=== PATIENT | male | born 1940 | race Caucasian/White ===

== ENCOUNTER → 2017-10-11 12:05 | Outpatient (CLI) | payer MEDICARE, SELFPAY ==
--- NOTE | 2017-10-11 12:13 | XR_ITS ---
XR chest 2V HISTORY: ITS.REASON: PNEUMONIA ORDERING PHYSICIAN: Debbie Bingham PATIENT AGE: 77 years COMPARISON: 12/03/2016 FINDINGS: There is borderline cardiomegaly without failure. Increased density in the left lower lobe and could be due to chronic changes or pneumonia.. Increased density is present in the right upper and right lower lobe consistent with pneumonia. There is thickening of the right minor fissure. No acute bony anomalies. There is a bone plate over the lower cervical spine. IMPRESSION: 1. Right upper and right lower lobe pneumonia. 2. Left lower lobe pneumonia versus chronic change.
== END ==
PROVIDERS: PCP Nurse Practitioner Family; Visit Provider Nurse Practitioner Family
DX: J18.1 Lobar pneumonia, unspecified organism (principal)
CPT/HCPCS: 71046

== ENCOUNTER → 2018-01-10 07:35 | Outpatient (CLI) | payer MEDICARE, SELFPAY ==
--- NOTE | 2018-01-10 07:41 | CA_ITS ---
PROCEDURE: 2-D M-mode and color Doppler study INDICATIONS FOR THE TEST: Chest pain X COPD Heart Murmur Tobacco Smoking Palpitations Fatigue Syncope EdemaX HypertensionXDiabetes MellitusX Rheumatic Fever SOB COBB ObesityXHyperlipidemiaX Family History HD Additional History CAD,LEUKEMIA PATIENT INFORMATION HEIGHT: 68 WEIGHT:222 GENDER: Male B/P:157/50 2-D/M-MODE INTERPRETATION: 2-D MEASUREMENTS OBSERVED VALUES IN CMS Right Ventricular Dimension (RVDd) 2.0 Interventricular Septum (Thickness)(IVsd) 1.3 Left Ventricular Internal Dimensions(LVIDd) 5.1 Left Ventricular Posterior Wall (Thickness)(LVPWd) 1.2 Aortic Root 3.9 Aortic Cusp Separation 1.3 Left Atrial Dimensions (LAD) 3.9 2D 1. Left atrium is mildly enlarged, left ventricle is normal size, mild concentric left ventricular hypertrophy, visually estimated ejection fraction 55% with no obvious regional wall motion abnormality. 2. The right atrium and right ventricle are mildly enlarged with normal contractility. 3. The aortic valve is thickened and calcified with mild restriction the leaflet mobility. 4. The mitral and tricuspid valve leaflets are minimally thickened. 5. The pulmonic valve is poorly visualized. 6. No significant pericardial effusion noted. DOPPLER INTERROGATION: 1. The maximum aortic out flow velocity recorded study 2.4 m/s, resulting in a mean gradient across valve of 14 mmHg represents mild aortic stenosis. There is no aortic insufficiency. 2. The mitral inflow velocity within normal range, there is no mitral stenosis, there is mild mitral regurgitation, grade 1 diastolic dysfunction seen with tissue Doppler evidence of raised left atrial pressure. 3. Mild tricuspid regurgitation, calculated right ventricular systolic pressure is 64 mmHg consistent with moderate pulmonary hypertension. CONCLUSION: 1. Mildly enlarged left atrium, normal left ventricular size, mild concentric left ventricular hypertrophy, visually estimated ejection fraction 55% with no obvious regional wall motion abnormality, grade 1 diastolic dysfunction seen with tissue Doppler evidence of raised left atrial pressure. 2. Thickened and calcified aortic valve, mean gradient across valve of 14 mmHg represents mild aortic stenosis, there is no aortic insufficiency. 3. Mild tricuspid regurgitation, calculated ventricular systolic pressure is 64 mmHg consistent with moderate pulmonary hypertension. 4. No significant pericardial effusion noted.
== END ==
PROVIDERS: PCP Family Medicine; Visit Provider Internal Medicine
DX: I25.10 Atherosclerotic heart disease of native coronary artery without angina pectoris (principal); R07.9 Chest pain, unspecified; E11.9 Type 2 diabetes mellitus without complications; E78.2 Mixed hyperlipidemia; I10 Essential (primary) hypertension; C91.00 Acute lymphoblastic leukemia not having achieved remission; R60.9 Edema, unspecified; Z95.5 Presence of coronary angioplasty implant and graft
CPT/HCPCS: 93306

== ENCOUNTER → 2018-01-13 14:33 | Outpatient (CLI) | payer MEDICARE, SELFPAY | PROVIDERS: Visit Provider Internal Medicine Medical Oncology | DX: D50.9 Iron deficiency anemia, unspecified (principal) | CPT/HCPCS: 36415; 86850 ==

== ENCOUNTER → 2018-01-14 08:50 | Outpatient (CLI) | payer MEDICARE, SELFPAY ==
[2018-01-14] VITALS (18 sets, daily range): BP systolic 150–198; BP diastolic 61–85; PULSE 58–69; RESP 16–18; TEMP 36.1–36.2; O2SAT 96; BMI 33.4
[2018-01-14 09:51] LABS: Hematocrit 24.2 % (42.0-52.0); Hemoglobin 8.2 g/dL (14.1-18.0)
--- NOTE | 2018-01-14 10:35 | PC.NURSE ---
1030 - INFUSION RATE AT 100 ML/HR AT THIS TIME
--- NOTE | 2018-01-14 11:53 | PC.NURSE ---
RATE WAS INCREASED TO 150 ML/HR AT 1100
--- NOTE | 2018-01-14 11:55 | PC.NURSE ---
1130 - INCREASED RATE TO 200 ML/HR AT THIS TIME
--- NOTE | 2018-01-14 12:36 | PC.NURSE ---
RATE WAS INCREASED TO 250 ML/HR AT 1200
--- NOTE | 2018-01-14 13:02 | PC.NURSE ---
1255 - BLOOD STARTED INFUSING AT 100 ML/HR AT THIS TIME
--- NOTE | 2018-01-14 13:47 | PC.NURSE ---
1325 - INCREASED RATE TO 150 ML/HR AT THIS TIME
--- NOTE | 2018-01-14 15:25 | PC.NURSE ---
1355 - INCREASED RATE TO 200 ML/HR AT THIS TIME.
--- NOTE | 2018-01-14 15:26 | PC.NURSE ---
INCREASED RATE TO 250 ML/HR AT 1425
== END ==
PROVIDERS: PCP Family Medicine; Visit Provider Internal Medicine Medical Oncology
DX: D50.9 Iron deficiency anemia, unspecified (principal)
CPT/HCPCS: 36430; 85014; 85018; P9016

== ENCOUNTER → 2018-01-25 13:44 | Outpatient (POV) | payer MEDICARE, SELFPAY | PROVIDERS: Visit Provider Internal Medicine | DX: Z00.00 Encounter for general adult medical examination without abnormal findings (principal) ==

== ENCOUNTER → 2018-05-17 18:09 | Outpatient (CLI) | payer MEDICARE, SELFPAY ==
[2018-05-20 07:03] LABS: C difficile Toxins AB, EIA Negative (Negative)
== END ==
PROVIDERS: PCP Family Medicine; Visit Provider Nurse Practitioner Family
DX: R19.7 Diarrhea, unspecified (principal)
CPT/HCPCS: 87045; 87324

== ENCOUNTER → 2018-09-16 07:43 | Outpatient (CLI) | payer MEDICARE, SELFPAY ==
--- NOTE | 2018-09-16 07:46 | US_ITS ---
US abd. aorta screening HISTORY: Follow-up abdominal aortic aneurysm or ITS.REASON: AAA ORDERING PHYSICIAN: Cary Costa PATIENT AGE: 78 years Comparison: 01/06/2017 FINDINGS: Study is somewhat limited due to patient's body habitus and overlying bowel gas. There is dilatation of the midabdominal aorta at 4 cm previously measured at 3 cm. Proximal common iliacs are unremarkable. IMPRESSION: Limited study demonstrating 4 cm abdominal aortic aneurysm which is increased in size from the previous exam. Suggest CT for confirmation due to the above limitations
== END ==
PROVIDERS: PCP Family Medicine; Visit Provider Urology
DX: I71.4 Abdominal aortic aneurysm, without rupture (principal)
CPT/HCPCS: 76705

== ENCOUNTER → 2018-09-27 08:47 | Outpatient (CLI) | payer MEDICARE, SELFPAY ==
--- NOTE | 2018-09-27 08:59 | CT_ITS ---
CT angio abdomen CLINICAL INDICATION: Abdominal aortic aneurysm evaluation, follow-up abdominal aortic aneurysm ITS.REASON: AAA ORDERING PHYSICIAN: Mesfin Presley MD PATIENT AGE: 78 years COMPARISON: 09/16/2018, 05/18/2012 TECHNIQUE: Axial images obtained with sagittal and coronal reformats. All CT scans at the facility use one or more dose reduction, viz: automated exposure control, ma/kV adjustment per patient size (including targeted exams where dose is matched to indication, i.e. head), or iterative reconstruction technique. PROCEDURE: Oral Contrast: None IV Contrast: 100 mL of Isovue-370. FINDINGS: Angiographic findings: Atheromatous changes are present within the abdominal aorta and its branches. There is mild fusiform dilatation of the upper abdominal aorta beginning 8 mm below the level the renal arteries measuring up to 3.3 cm transverse and 3.1 cm AP. The aorta then becomes somewhat more narrow at 2.6 cm AP and transverse and then once again shows fusiform aneurysmal dilatation measuring up to 3.6 cm AP and 3.4 cm transverse. On the exam of 05/18/2012 the abdominal aorta measures up to 3.3 cm AP and 3 cm transverse. There is mild mild intramural thrombus. Calcific plaque is present at the ostium of the celiac artery with at least 50% stenosis. No significant stenosis of the SMA however, plaque is present at the origin. Calcific plaque is now also noted at the origin of the renal arteries on both sides with high-grade stenosis on the right greater than 50%. The inferior mesenteric artery is patent. Calcific plaque is present also and involving the iliac arteries with mild dilatation of the common iliac on the right at 1.7 cm. Nonvascular findings: Gallbladder is slightly distended with minimal prominence of the extrahepatic biliary radicals. The liver, spleen, adrenal glands, and pancreas have an unremarkable appearance. THERE IS A LOBULATED PERIPHERALLY ENHANCING RIGHT RENAL MASS INVOLVING THE UPPER POLE THE RIGHT KIDNEY. This mass measures 3.9 cm AP, 3.6 cm transverse, and 3.6 cm cephalad caudad and is suspicious for neoplasm. This has developed since the previous exam and has also developed since the previous ultrasound of 11/11/2016. Decreased density is noted centrally within this lesion. Degenerative changes are present in the lumbar spine. There is 50% wedge compression changes involving the L4 vertebral body centrally and anteriorly. This has developed since 04/20/2017 lumbar spine film. IMPRESSION: 1. Atherosclerotic vascular disease of the aorta and its branches with a fusiform infrarenal abdominal aortic aneurysm measuring up to 3.6 x 3.4 cm slightly increased in size compared to the previous CT scan of 05/18/2012. 2. 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 3. There is a 3.9 x 3.6 cm enhancing mass along the superior pole the right kidney. This is highly suspicious for renal cell carcinoma.
[2018-09-27 09:15] LABS: Blood Urea Nitrogen 17 mg/dL (7-18); Creatinine,Serum 0.94 mg/dL (0.70-1.30); Estimated Glomerular Filt Rate 78 ml/min (>60); GFR (African American) 94 ML/MIN (>60)
== END ==
PROVIDERS: Urology; Visit Provider Internal Medicine
DX: I71.4 Abdominal aortic aneurysm, without rupture (principal)
CPT/HCPCS: 36415; 74175; 82565; 84520; Q9967

== ENCOUNTER → 2019-08-10 17:10 | Outpatient (CLI) | payer MEDICARE, SELFPAY | PROVIDERS: Visit Provider Nurse Practitioner Family | DX: R19.7 Diarrhea, unspecified (principal) | CPT/HCPCS: 87045 ==

== ENCOUNTER 2020-03-01 10:45 | Outpatient (RCR) | payer MEDICARE, SELFPAY | END 2020-03-01 12:00 | disposition home or self-care (01) | LOC: PT 10:45 | PROVIDERS: PCP Family Medicine; Visit Provider Family Medicine | DX: M54.5 Low back pain (principal); M62.81 Muscle weakness (generalized); C85.90 Non-Hodgkin lymphoma, unspecified, unspecified site; I35.1 Nonrheumatic aortic (valve) insufficiency; E11.65 Type 2 diabetes mellitus with hyperglycemia; D63.8 Anemia in other chronic diseases classified elsewhere | CPT/HCPCS: 97542 ==

== ENCOUNTER → 2020-04-13 10:46 | Outpatient (CLI) | payer MEDICARE, SELFPAY ==
--- NOTE | 2020-04-13 | XR_ITS ---
PROCEDURE: XR CERVICAL SPINE 5V CLINICAL INDICATION: Neck pain COMPARISON: No exams were available for comparison FINDINGS: There has been prior anterior cervical disc fusion at C3 and C4 with an anterior bone plate. An additional bone plate is present anteriorly with fusion at C4-C5 and C6 with disc spacers at C3-C4 C4-C5 and C5-C6. There is normal alignment. No acute fracture or dislocation. No lytic or blastic change. There is mild foraminal narrowing on the right at C2-C3. IMPRESSION: Postsurgical changes with good alignment. No acute finding. Mild right foraminal narrowing at C2-C3 Dictated b Venancio Mondragon MD 04/13/2020 12:51 Venancio Mondragon MD in [place] 04/13/2020 12:51
== END ==
PROVIDERS: PCP Nurse Practitioner Family; Visit Provider Nurse Practitioner Family
DX: M54.2 Cervicalgia (principal); R20.2 Paresthesia of skin; R20.0 Anesthesia of skin; Z98.1 Arthrodesis status
CPT/HCPCS: 72050

== ENCOUNTER 2020-05-04 19:49 | Observation (INO) | payer MEDICARE, SELFPAY ==
[2020-05-04] VITALS (8 sets, daily range): BP systolic 109–189; BP diastolic 57–85; PULSE 80–93; RESP 18–24; TEMP 37.2; O2SAT 82–97; BMI 30.4; BMI 31.3
--- NOTE | 2020-05-04 20:14 | ECG_ITS ---
APPROVED REPORT Exam: Resting ECG HR:95 bpm ECG Measurements Heart Rate 95 AXES DE 244 P 60 QRSd 102 QRS 73 QT 324 T 69 QTc 407 <Conclusion> Sinus rhythm with 1st degree AV block Incomplete right bundle branch block Borderline ECG Electronically signed by : Alverto Gonzalez, 05/05/2020 19:51:27
--- NOTE | 2020-05-04 20:14 | XR_ITS ---
PROCEDURE: XR CHEST PORTABLE CLINICAL HISTORY: SOA Shortness of air COMPARISON: CR CXR1 CHEST-PORTABLE from 12/02/2016 CR CXR CHEST(2 VIEWS-NOT PORTABLE) from 12/03/2016 CR CXR2V XR chest 2V from 10/11/2017 FINDINGS: The cardiomediastinal silhouette and pulmonary vascularity are within normal limits. There is dense consolidation in the right upper lobe consistent with pneumonia. Increased density also noted in the lower lobe consistent pneumonia or atelectatic change. Left clear. IMPRESSION: Right upper and right lower lobe pneumonia most severe in the right upper Dictated by: Venancio Mondragon MD 05/05/2020 06:45 Venancio Mondragon MD in [place] 05/05/2020 06:45
[2020-05-04 20:25] LABS: Basophils % 0.4 % (0.1-2.0); Eosinophils # 0.1 K/mm3 (0.0-0.4); Eosinophils % 0.6 % (0.1-12.0); Hematocrit 31.8 % (42.0-52.0); Hemoglobin 10.5 g/dL (14.1-18.0); Lymphocytes # 6.4 K/mm3 (0.7-4.5); Lymphocytes % 54.4 % (10-50); Mean Corpuscular HGB Conc 32.8 g/dL (31.8-35.4); Mean Corpuscular Hemoglobin 36.2 pg (27.0-31.2); Mean Corpuscular Volume 110.2 fl (80-94); Mean Platelet Volume 8.9 fl (7.4-10.4); Monocytes # 0.3 K/mm3 (0.1-1.0); Monocytes % 2.7 % (1.7-9.3); Neutrophils # 4.9 K/mm3 (1.8-7.8); Neutrophils % 41.9 % (37.0-80.0); Platelet Count 76 K/mm3 (142-424); Red Blood Count 2.89 M/mm3 (4.60-6.20); Red Cell Distribution Width 14.1 % (11.5-17.5); White Blood Count 11.7 K/mm3 (4.8-10.8)
[2020-05-04 20:27] LABS: MANUAL DIFFERENTIAL MANUAL DIFFERENTIAL (MANUAL DIFF)
[2020-05-04 20:30] LABS: Alanine Aminotransferase 14 U/L (12-78); Albumin Level 3.4 g/dl (3.5-5.0); Albumin/Globulin Ratio 1.6 (1.1-1.8); Alkaline Phosphatase 23 U/L (38-126); Anion Gap 17.9 mEq/L (5-15); Aspartate Amino Transferase 32 U/L (17-59); Bilirubin,Total 1.2 mg/dl (0.2-1.3); Blood Urea Nitrogen 29 mg/dl (9-20); Calcium 8.6 mg/dl (8.4-10.2); Carbon Dioxide 16 mmol/L (22.0-30.0); Chloride 107 mmol/L (98-107); Creatinine Clearance Estimated 71 mL/min (50-200); Estimated Glomerular Filt Rate 65 ml/min (>60); GFR (African American) 78 ML/MIN (>60); Globulin 2.1 g/dL (1.3-3.2); Glucose 180 mg/dl (74-100); Potassium 5.9 mmoL/L (3.5-5.1); Sodium 135 mmol/L (136-145); Total Protein,Serum 5.5 g/dl (6.3-8.2)
[2020-05-04 20:32] LABS: Lymphocytes % 45 % (10-50); Macrocytosis 4+; Monocytes % 1 % (2-9); Neutrophils % 47 % (42-76); Platelet Estimate Slight Decrease; Total Cells Counted 100
[2020-05-04 20:33] LABS: Hypochromasia 1+; Rouleaux 1+
[2020-05-04 20:42] LABS: Troponin I 0.02 ng/ml (0.00-0.034)
[2020-05-04 20:43] LABS: VBG Base Excess -10.5 mmol/L (-2.4-2.3); VBG HCO3 15.2 mmol/L (23-30); VBG PCO2 28.7 mmol/L (35-51); VBG PH 7.34 mmol/L (7.31-7.41); VBG PO2 198.7 mmol/L (28-40); VBG Total CO2 16.1 mmol/L (23-27)
--- NOTE | 2020-05-04 20:56 | PC.NURSE ---
Pt placed on bipap
--- NOTE | 2020-05-04 21:05 | PC.NURSE ---
notified Dr. Fajardo that pt has 2 Sirs with organ dysfunction. MD doesn't want fluid bolus @ this time
[2020-05-04 21:06] LABS: NT Pro Brain Natriuretic Pep. 4100 pg/mL (0-450)
--- NOTE | 2020-05-04 21:07 | PC.NURSE ---
called lab and notifed of order for blood cultures and lactic acid
--- NOTE | 2020-05-04 21:17 | HMH.EDGENADL ---
ED Disposition Clinical Impression: Congestive heart failure Qualifiers: Heart failure type: unspecified Heart failure chronicity: acute on chronic Qualified Code(s): I50.9 - Heart failure, unspecified Disposition: Admitted As Inpatient Condition on Discharge: Good Referrals: Yulisa Fong MD [Primary Care Provider] - - Critical Care Critical Care Time: No Attestation: On 05/04/20, the high probability of a clinically significant, sudden or life threatening deterioration of the following system(s) required my full and direct attention, intervention and personal management. The time I documented below is in addition to time spent performing reported procedures but includes the following listed in this critical care notation. Medical Decision Making - Abdoul Inquiry Pt receiving controlled substance: No Vital Signs: 05/04/20 19:49 05/04/20 20:31 05/04/20 20:51 Temperature 98.9 F Temperature Source Oral Pulse Rate [Right Brachial] 93 H 88 87 Respiratory Rate 24 18 18 Blood Pressure [Right Arm] 189/73 H 157/69 H 109/57 L Blood Pressure Mean [Right Arm] 111 98 74 02 Sat by Pulse Oximetry 82 L 95 95 Oxygen Delivery Method Room Air Room Air BiPAP - Lab Data Lab Results 05/04/20 20:05: Sodium 135 L, Potassium 5.9 H, Chloride 107, Carbon Dioxide 16 L, Anion Gap 17.9 H, BUN 29 H, Creatinine 1.10, Estimated Creat Clear 71, Estimated GFR 65, Est GFR ( Amer) 78, Glucose 180 H, Calcium 8.6, Total Bilirubin 1.2, AST 32, ALT 14, Alkaline Phosphatase 23 L, Troponin I 0.02, Total Protein 5.5 L, Albumin 3.4 L, Globulin 2.1, Albumin/Globulin Ratio 1.6 05/04/20 20:05: WBC 11.7 H, RBC 2.89 L, Hgb 10.5 L, Hct 31.8 L, MCV 110.2 H, MCH 36.2 H, MCHC 32.8, RDW 14.1, Plt Count 76 L, MPV 8.9, Neut % (Auto) 41.9, Lymph % (Auto) 54.4 H, Henderson % (Auto) 2.7, Eos % (Auto) 0.6, Baso % (Auto) 0.4, Neut # (Auto) 4.9, Lymph # (Auto) 6.4 H, Henderson # (Auto) 0.3, Eos # (Auto) 0.1, Baso # (Auto) 0.0, Total Counted 100, Neutrophils % (Manual) 47, Band Neutrophils % 7.0, Lymphocytes % (Manual) 45, Monocytes % (Manual) 1 L, Platelet Estimate Slight decrease, Hypochromasia 1+, Macrocytosis 4+, Rouleaux 1+ 05/04/20 20:05: NT-Pro-B Natriuret Pep 4100 H 05/04/20 20:42: VBG pH 7.34, VBG pCO2 28.7 L, VBG pO2 198.7 H, VBG HCO3 15.2 L, VBG Total CO2 16.1 L, VBG O2 Saturation 99.0 H, VBG Base Excess -10.5 L Result diagrams: 05/04/20 20:05 05/04/20 20:05 Orders (Tests/Meds): ED MEDICATIONS Generic Name Dose Route Start Last Admin Trade Name Freq PRN Reason Stop Dose Admin Azithromycin 500 mg/ Sodium 250 mls @ 250 mls/hr 05/04/20 21:15 Chloride IV 05/18/20 21:14 Q24H [facility] Protocol Piperacillin Sod/Tazobactam 50 mls @ 100 mls/hr 05/04/20 21:15 Sod 3.375 gm/ Sodium Chloride IV 05/18/20 21:14 Q6H [facility] Protocol Miscellaneous 1 each 05/04/20 21:15 Vancomycin Consult Request * 06/03/20 21:14 [facility]ULT [facility]STEN Discontinued Medications Generic Name Dose Route Start Last Admin Trade Name Freq PRN Reason Stop Dose Admin Furosemide 60 mg 05/04/20 20:35 05/04/20 20:56 Lasix 100mg/10ml Vial IV 05/04/20 20:36 60 mg ONCE ONE Administration Nitroglycerin 0.4 mg 05/04/20 20:57 05/04/20 20:59 Nitrostat 0.4mg Sl Tablet SL 05/04/20 20:58 0.4 mg ONCE ONE Administration ORDERS Category Date Time Status XR chest portable Stat Exams 05/04/20 20:14 Taken Lactic Acid Stat Lab 05/04/20 21:02 Ordered Troponin I Q3H Lab 05/04/20 23:30 Ordered Troponin I Q3H Lab 05/05/20 02:30 Ordered Blood Culture Stat Micro 05/04/20 21:01 Ordered VBG [Venous Blood Gas] Stat RT 05/04/20 20:31 Ordered Medical Decision Narrative: In summary patient presents chest pain shortness of breath. Patient on arrival was only hypoxemic 82%, increased respiratory accessory muscle use, patient was in moderate respiratory distress. Patient started on BiPAP, bedside ultrasound demonstrating mildly reduc
--- NOTE | 2020-05-04 21:18 | PC.NURSE ---
Dr. Consuelo victor
--- NOTE | 2020-05-04 21:22 | PC.NURSE ---
on phone with DR edward
--- NOTE | 2020-05-04 21:23 | PC.NURSE ---
spoke with Dr. Cordero and asked pt be backed off bipap and placed on vapotherm. Notified respiratory
--- NOTE | 2020-05-04 21:27 | PC.NURSE ---
spoke with [facility] for vancomycin consult. dosage 1500mg every 18 hrs
[2020-05-04 21:54] LABS: Lactic Acid 1.2 mmol/L (0.7-2.1)
[2020-05-04 21:57] LABS: Coronavirus 19 IgG Antibody Negative (Negative); Coronavirus 19 IgM Antibody Negative (Negative)
--- NOTE | 2020-05-04 22:04 | PC.NURSE ---
called report to Kannan Márquez this time
--- NOTE | 2020-05-04 22:04 | PC.NURSE ---
pt had 400cc in [place]
--- NOTE | 2020-05-04 22:21 | PC.NURSE ---
PT ARRIVED TO THE FLOOR VIA STRETCHER FROM ED W/STAFF AT 2220.
[2020-05-04 23:50] LABS: Troponin I 0.01 ng/ml (0.00-0.034)
[2020-05-05] VITALS (9 sets, daily range): BP systolic 118–156; BP diastolic 54–70; PULSE 68–90; RESP 18–30; TEMP 36.9–37.3; O2SAT 94–99; BMI 30.9
--- NOTE | 2020-05-05 02:32 | PC.NURSE ---
A&OX4. PT TOLERATING VAPOTHERM WELL T/O SHIFT, 02 IN THE MID 90S. PT IS VERY PLEASANT. PT HAS RESTED IN BED WITH EYES CLOSED T/O MAJORITY OF SHIFT. PT TOLERATING IV ABX, VANCOMYCIN VERIFIED PER EVELYN. F/C PRESENT DRAINING BRIGHT YELLOW URINE. PT HAS +2 PITTING EDEMA PRESENT TO BLE. ELEVATED T/O SHIFT. NO C/O THUS FAR, VSS WILL CONTINUE TO MONITOR.
[2020-05-05 03:22] LABS: Troponin I 0.01 ng/ml (0.00-0.034)
--- NOTE | 2020-05-05 07:44 | HMH.HP ---
*Admission Date: 05/04/20 *Chief complaint: Shortness of breath *History of present illness: 79-year-old male with history of coronary artery disease, mild aortic stenosis, leukemia presented to the emergency department with acute onset of shortness of breath yesterday morning. Patient felt well when going to bed on Wednesday night. When awaking Wednesday morning he was dyspneic and only had a minor nonproductive cough. He does report 2 episodes of less than a teaspoon of hemoptysis. He developed chest discomfort as the day progressed and ultimately presented to the emergency department. Work-up in the ER revealed right upper and right lower lobe pneumonia on chest x-ray along with mild elevation of patient's white blood cell count and elevation of BNP. Patient was started on broad-spectrum antibiotics as he met sepsis criteria. Patient was given intravenous Lasix as well. Initially patient was placed on BiPAP for respiratory support and this has been transitioned to Vapotherm. This morning the patient reports being chest pain-free and with Vapotherm he reports being free of any shortness of breath. [facility] History I have reviewed the patient's past medical history: Yes Medical History: Reports:: Aneurysm (Aortic), Anxiety, Cancer (Leukemia, suspected renal cell carcinoma from CT scan of 2018), Diabetes Mellitus Type 1, Hypertension Denies:: Diabetes Mellitus Type 2, Internal Pacemaker, MRSA, Seizures *Have you ever received a pneumonia vaccine?: Yes *Have you received a flu vaccine this season?: No Other Medical History: Reports: Anemia, Arthritis Other Surgeries: Yes: Cardiac Surgery, Coronary Stent, Other. No: Pacemaker Amputation: No Fractures: No - *Social History Last grade of school completed: 7th or 8th Smoking Status: Former smoker #Yrs smoked (if former smoker): 20 Alcohol Intake: never Alcohol Intake Frequency:: other Substance Use Type: denies use *Occupational Status:: retired Housing: house Household Members: spouse *Travel in the last 8 weeks: None - Psychiatric History Pschychiatric History:: Reports:: Anxiety Family Hx:: No significant family history Review of Systems - Constitutional Denies anorexia, Denies body ache(s), Denies chills, Denies fatigue, Denies fever(s), Denies night sweats - ENT Denies abnormal hearing - *Cardiovascular Reports chest pain - *Respiratory Reports shortness of breath, Reports shortness of breath with activity, Reports coughing up blood, Reports wheezing, Denies excessive phlegm production, Denies pain on inspiration, Denies pain with cough, Denies snoring - *Gastrointestinal Denies abdominal pain - *Genitourinary Denies difficulty urinating - *Musculoskeletal Denies abnormal walking - Psychiatric Denies abnormal sleep pattern Meds Home Medications Medication Instructions Recorded Confirmed Type aspirin 81 mg tablet,delayed 81 mg PO QDAY 09/13/17 05/04/20 History release atorvastatin 20 mg tablet 20 mg PO QDAY 09/13/17 05/04/20 History glipizide 10 mg tablet 10 mg PO BID tab 09/13/17 05/04/20 History metformin 500 mg tablet 1,000 mg PO BID tab 09/13/17 05/04/20 History multivitamin 1 tab PO QDAY 09/13/17 05/04/20 History omeprazole 20 mg capsule,delayed 20 mg PO QDAY 09/13/17 05/04/20 History release acetaminophen 500 mg tablet 500 mg PO Q6H PRN 09/14/17 05/04/20 History Amlodipine Besylate [Amlodipine 10 mg PO DAILY 01/14/18 05/04/20 History 10mg Tab] LORazepam [Ativan 1mg tablet] 1 mg PO TID 01/14/18 05/04/20 History carvedilol 12.5 mg tablet 25 mg PO BID tab 09/13/18 05/04/20 History nitroglycerin 0.4 mg sublingual 0.4 mg SUBLINGUAL Q5-15M PRN #20 11/24/19 05/04/20 Rx tablet tab Chlorthalidone 25 mg PO ONCE 05/04/20 05/04/20 History Allergies Allergy/AdvReac Type Severity Reaction Status Date / Time ciprofloxacin [From CIPRO] Allergy Mild Verified 06/13/19 11:03 codeine [CODEINE] Allergy Mild Verified 06/13/19 11:03 Exam Vital
--- NOTE | 2020-05-05 08:56 | HMH.PHAINT ---
MEDICATION RECONCILIATION COMPLETED ON PATIENT USING PATIENT'S OWN RX BOTTLES AND EXTERNAL FILL HISTORY FROM PHARMACY. -EVELYN PITTS, XUAND
[2020-05-05 09:00] LABS: Basophils # 0.1 K/mm3 (0-0.2); Basophils % 0.4 % (0.1-2.0); Eosinophils # 0.1 K/mm3 (0.0-0.4); Eosinophils % 1.2 % (0.1-12.0); Hematocrit 30.7 % (42.0-52.0); Hemoglobin 10.1 g/dL (14.1-18.0); Lymphocytes # 5.5 K/mm3 (0.7-4.5); Lymphocytes % 47.4 % (10-50); Mean Corpuscular HGB Conc 32.8 g/dL (31.8-35.4); Mean Corpuscular Volume 109.8 fl (80-94); Mean Platelet Volume 8.1 fl (7.4-10.4); Monocytes # 0.3 K/mm3 (0.1-1.0); Monocytes % 2.7 % (1.7-9.3); Neutrophils # 5.6 K/mm3 (1.8-7.8); Neutrophils % 48.3 % (37.0-80.0); Platelet Count 80 K/mm3 (142-424); Red Cell Distribution Width 14.2 % (11.5-17.5); White Blood Count 11.6 K/mm3 (4.8-10.8)
[2020-05-05 09:05] LABS: Chloride 106 mmol/L (98-107)
[2020-05-05 09:06] LABS: Potassium 5.3 mmoL/L (3.5-5.1); Sodium 135 mmol/L (136-145)
[2020-05-05 09:08] LABS: Blood Urea Nitrogen 33 mg/dl (9-20); Creatinine Clearance Estimated 80 mL/min (50-200); Estimated Glomerular Filt Rate 72 ml/min (>60); GFR (African American) 87 ML/MIN (>60)
[2020-05-05 09:09] LABS: Anion Gap 13.3 mEq/L (5-15); Calcium 8.9 mg/dl (8.4-10.2); Carbon Dioxide 21 mmol/L (22.0-30.0); Glucose 191 mg/dl (74-100)
--- NOTE | 2020-05-05 13:23 | HMH.PHAVTE ---
[facility] Pharmacy VTE Monitoring - Patient Demographics Admission date: 05/04/20 Report Date: 05/05/20 Time: 13:23 Allergies/Adverse Reactions: Patient Allergies ciprofloxacin [From CIPRO] Allergy (Mild, Verified 06/13/19 11:03) codeine [CODEINE] Allergy (Mild, Verified 06/13/19 11:03) Height: 1.73 m Weight: 92.788 kg Patient Problems: Current Active Problems Congestive heart failure (Acute) Pneumonia (Acute) Mild aortic stenosis (Acute) Coronary artery disease (Acute) Hyperkalemia (Acute) - VTE Risk Labs: VTE Related Lab Results Hgb 10.1 g/dL (14.1-18.0) L 05/05/20 08:50 Hct 30.7 % (42.0-52.0) L 05/05/20 08:50 Plt Count 80 K/mm3 (142-424) L 05/05/20 08:50 BUN 33 mg/dl (9-20) H 05/05/20 08:50 Creatinine 1.00 mg/dl (0.66-1.25) 05/05/20 08:50 Estimated Creat Clear 80 mL/min (50-200) 05/05/20 08:50 - Prophylaxis VTE Prophylaxis Ordered?: Yes Types of VTE Prophylaxis: TEDS Knee High Location of Applied Device: Bilateral Lower Extremeties
--- NOTE | 2020-05-05 19:38 | PC.NURSE ---
Pt is alert and oriented and able to make needs known. NAD, denies soa at this time. Has had adequate urinary o/p. Aguirre remains in place and draining yellow o/p. 3 plus edematous ble. Did have bm x 2 this shift and soft and formed. Has been weaned from vapotherm to NC and is currently on 3 NC. Has been up to chiar this shift. CB in reach and at bedside. Continues on IV ABT.
[2020-05-06] VITALS (11 sets, daily range): BP systolic 135–154; BP diastolic 57–73; PULSE 60–89; RESP 20–26; TEMP 36.4–36.8; O2SAT 90–98; BMI 30.6; BMI 30.7
--- NOTE | 2020-05-06 02:49 | PC.NURSE ---
A&OX4. PT TOLERATING 3LNC T/O SHIFT. PT HAS NOT C/O SOA, THOUGH HIS RESP RATE HAS BEEN INCREASED T/O SHIFT. PT HAS COUGHED ONCE PRODUCTIVELY, THICK AND BLOOD TINGED SPUTUM NOTED. PT C/O PAIN IN HIS L LEG, TX WITH TYLENOL PER NOV. PT ALSO REQUESTED PRN ATIVAN WHICH HE SAYS HE TAKES EACH NIGHT. ON REASSESSMENT, PT RESTING IN BED WITH EYES CLOSED. +2 PITTING EDEMA TO BLE, ELEVATED T/O SHIFT. F/C PRESENT DRAINING BRIGHT YELLOW URINE. PT HAS RESTED IN BED WITH EYES CLOSED MAJORITY OF SHIFT. PT TOLERATING IV ABX WELL. NO OTHER C/O THUS FAR, VSS WILL CONTINUE TO MONITOR.
[2020-05-06 06:09] LABS: Basophils % 0.2 % (0.1-2.0); Eosinophils # 0.2 K/mm3 (0.0-0.4); Eosinophils % 1.5 % (0.1-12.0); Hemoglobin 9.1 g/dL (14.1-18.0); Lymphocytes # 4.6 K/mm3 (0.7-4.5); Lymphocytes % 46.9 % (10-50); Mean Corpuscular HGB Conc 33.6 g/dL (31.8-35.4); Mean Corpuscular Hemoglobin 36.1 pg (27.0-31.2); Mean Corpuscular Volume 107.5 fl (80-94); Mean Platelet Volume 8.4 fl (7.4-10.4); Monocytes # 0.3 K/mm3 (0.1-1.0); Neutrophils # 4.8 K/mm3 (1.8-7.8); Neutrophils % 48.4 % (37.0-80.0); Platelet Count 78 K/mm3 (142-424); Red Blood Count 2.52 M/mm3 (4.60-6.20); Red Cell Distribution Width 13.9 % (11.5-17.5); White Blood Count 9.8 K/mm3 (4.8-10.8)
[2020-05-06 06:11] LABS: Hematocrit 27.1 % (42.0-52.0)
[2020-05-06 06:13] LABS: Chloride 107 mmol/L (98-107); Sodium 136 mmol/L (136-145)
[2020-05-06 06:14] LABS: Potassium 4.4 mmoL/L (3.5-5.1)
[2020-05-06 06:16] LABS: Blood Urea Nitrogen 30 mg/dl (9-20); Creatinine Clearance Estimated 66 mL/min (50-200); Estimated Glomerular Filt Rate 59 ml/min (>60); GFR (African American) 71 ML/MIN (>60)
[2020-05-06 06:17] LABS: Anion Gap 10.4 mEq/L (5-15); Carbon Dioxide 23 mmol/L (22.0-30.0); Glucose 99 mg/dl (74-100)
--- NOTE | 2020-05-06 07:00 | CA_ITS ---
APPROVED REPORT EXAM: Comprehensive 2D, Doppler, and color-flow Echocardiogram Patient Admitting Clerk: Delicia Trevino CRT Ht: 5 ft 8 in Wt: 204lbs BSA: 2.06 BP: 112/74 mmHg Indications: CP, EDEMA, HTN, DM, OBESITY, HLD, CAD, MILD 2D Dimensions LVOT 1.76 cm (M/F) 1.5-2.5 M-Mode Dimensions RVDd 3.02 cm (0.9-2.6) LVDd 4.87 cm (3.5-5.7) LVDs 3.38 cm (3.5-5.7) IVSd 1.77 cm (0.6-1.1) PWd 0.95 cm (0.6-1.1) EF (Teich) 57.90% FS 30.60% EDV (Teich) 111.20 mL ESV (Teich) 46.80 mL LV Diastology E/A Ratio 0.66 Aortic Valve LVOT Max 117.00 (70-110 cm/s) LVOT VTI 26.61 cm Mitral Valve MV A Velocity 105.00 (40-130 cm/s) Left Ventricle Left atrium is mildly enlarged, left ventricle is normal size, mild concentric left ventricular hypertrophy, visually estimated ejection fraction 55% with no regional wall motion abnormality, diastolic parameters are inconclusive. Right Ventricle Right atrium and right ventricle are mildly enlarged with normal contractility. Aortic Valve Aortic valve is thickened and calcified with restriction in the leaflet mobility, the mean gradient across aortic valve is 18 mmHg, valve area is 1.3 cm??? represents moderate aortic stenosis, there is no significant aortic insufficiency seen. Mitral Valve Mitral valve leaflets are minimally thickened, there is no mitral stenosis, there is mild mitral regurgitation. Tricuspid Valve There is mild tricuspid regurgitation, tricuspid regurgitation jet velocity is inadequate for calculation of the right ventricular systolic pressure. Pulmonic Valve Pulmonic valve is poorly visualized. Great Vessels Aortic root is normal size. Pericardium No significant pericardial effusion noted. Conclusion 1. Biatrial enlargement, normal left ventricular size, mild concentric left ventricular hypertrophy, visually estimated ejection fraction 55% with no regional wall motion abnormality, diastolic parameters are inconclusive. 2. Mildly enlarged right ventricle with normal contractility. 3. Thickened and calcified aortic valve with valve area of 1.3 cm??? represents moderate aortic stenosis, there is no aortic insufficiency. 4. Mild mitral and tricuspid regurgitation. 5. No significant pericardial effusion noted. Electronically signed by : Kale Thakkar, 05/06/2020 18:13:14
--- NOTE | 2020-05-06 07:03 | HMH.ACPN2 ---
Internal Medicine - PN: Subj *Date: 05/06/20 *Time: 07:03 Interval history: Patient has no complaints this morning. He denies shortness of breath. His cough is still productive of some blood-tinged sputum. He has not had any fevers. He was weaned to nasal cannula. He reports overall pain due to discomfort from his bed as well as leg pain on the left side which is chronic Exam Vital signs and Labs for Last 24 Hours: Temp Pulse Resp BP Pulse Ox 98.3 F 76 23 154/63 H 97 05/06/20 04:00 05/06/20 04:00 05/06/20 04:00 05/06/20 04:00 05/06/20 04:00 Laboratory Results - last 24 hr 05/05/20 08:50: WBC 11.6 H, RBC 2.80 L, Hgb 10.1 L, Hct 30.7 L, MCV 109.8 H, MCH 36.0 H, MCHC 32.8, RDW 14.2, Plt Count 80 L, MPV 8.1, Neut % (Auto) 48.3, Lymph % (Auto) 47.4, [place] % (Auto) 2.7, Eos % (Auto) 1.2, Baso % (Auto) 0.4, Neut # (Auto) 5.6, Lymph # (Auto) 5.5 H, [place] # (Auto) 0.3, Eos # (Auto) 0.1, Baso # (Auto) 0.1 05/05/20 08:50: Sodium 135 L, Potassium 5.3 H, Chloride 106, Carbon Dioxide 21 L D, Anion Gap 13.3, BUN 33 H, Creatinine 1.00, Estimated Creat Clear 80, Estimated GFR 72, Est GFR ( Amer) 87, Glucose 191 H, Calcium 8.9 05/06/20 05:53: WBC 9.8, RBC 2.52 L, Hgb 9.1 L, Hct 27.1 L, MCV 107.5 H, MCH 36.1 H, MCHC 33.6, RDW 13.9, Plt Count 78 L, MPV 8.4, Neut % (Auto) 48.4, Lymph % (Auto) 46.9, [place] % (Auto) 3.0, Eos % (Auto) 1.5, Baso % (Auto) 0.2, Neut # (Auto) 4.8, Lymph # (Auto) 4.6 H, [place] # (Auto) 0.3, Eos # (Auto) 0.2, Baso # (Auto) 0.0 05/06/20 05:53: Sodium 136, Potassium 4.4, Chloride 107, Carbon Dioxide 23, Anion Gap 10.4, BUN 30 H, Creatinine 1.20, Estimated Creat Clear 66, Estimated GFR 59, Est GFR ( Amer) 71, Glucose 99 D, Calcium 9.0 I & O for Last 24 hours: Intake & Output 05/03/20 05/04/20 05/05/20 05/06/20 11:59 11:59 11:59 11:59 Intake Total 790 / 790 910 / 910 Output Total 3090 / 3090 1745 / 1745 Balance -2300 / -2300 -835 / -835 Weight 204 lb 9 oz 202 lb 4 oz - Constitutional no acute distress - *Routine Respiratory Exam Comments: Right lung has crackles both anteriorly and posteriorly with some faint wheezes mixed in. Left lung is clear. - *Routine Cardiovascular Exam Present: RRR - *Routine Extremities Exam Present: edema Assessment and Plan (1) Pneumonia Current visit: Yes Status: Acute Category: Medical Code(s): J18.9 - Pneumonia, unspecified organism Continue antibiotics. White count has decreased. Duo nebs ordered as needed (2) Mild aortic stenosis Current visit: Yes Status: Acute Category: Medical Code(s): I35.0 - Nonrheumatic aortic (valve) stenosis (3) Coronary artery disease Current visit: Yes Status: Acute Category: Medical Code(s): I25.10 - Atherosclerotic heart disease of [place] coronary artery without angina pectoris Echocardiogram today (4) Hyperkalemia Current visit: Yes Status: Acute Category: Medical Code(s): E87.5 - Hyperkalemia Improved on today's BMP (5) Diabetes mellitus Current visit: No Status: Chronic Qualifiers: Diabetes mellitus type: type 2 Diabetes mellitus rodent exterminator insulin use: without [place] [facility] use Diabetes mellitus complication status: with unspecified complications Category: Medical Code(s): E11.9 - Type 2 diabetes mellitus without complications Stable (6) HHD (hypertensive heart disease) Current visit: No Status: Chronic Qualifiers: Heart failure presence: without heart failure Qualified Code(s): I11.9 - Hypertensive heart disease without heart failure Category: Medical Code(s): I11.9 - Hypertensive heart disease without heart failure (7) Chronic lymphocytic leukemia (CLL), B-cell Current visit: Yes Status: Acute Qualifiers: Leukemia Active/Remission status: in remission Qualified Code(s): C91.11 - Chronic lymphocytic leukemia of B-cell type in remission Category: Medical Code(s): C91.10 - Chronic lymphocytic leukemia of B[place]
[2020-05-06 09:32] LABS: Adenovirus F 40/41, stool Not Detected (NotDetected); Astrovirus Not Detected (NotDetected); Campylobacter Not Detected (NotDetected); Clostridium Difficile A/B, PCR Not Detected (NotDetected); Cryptosporidium Not Detected (NotDetected); Cyclospora Cayetanesis Not Detected (NotDetected); Entamoeba histolytica Not Detected (NotDetected); Enteroaggregative E coli Not Detected (NotDetected); Enteropathogenic E coli Not Detected (NotDetected); Enterotoxigenic E coli Not Detected (NotDetected); Giardia lamblia Not Detected (NotDetected); Norovirus Not Detected (NotDetected); Plesimonas Shigalloides, PCR Not Detected (NotDetected); Rotavirus A Not Detected (NotDetected); Salmonella, PCR Not Detected (NotDetected); Sapovirus Not Detected (NotDetected); Shiga-like toxin E coli Not Detected (NotDetected); Shigella Enterovasive E coli Not Detected (NotDetected); Vibrio Cholerae Not Detected (NotDetected); Vibrio, PCR Not Detected (NotDetected); Yersinia Entercolitica, PCR Not Detected (NotDetected)
--- NOTE | 2020-05-06 19:17 | PC.NURSE ---
report given to chau
--- NOTE | 2020-05-06 20:31 | PC.NURSE ---
rt collected SPT and sent to lab at 2008
--- NOTE | 2020-05-06 21:05 | PC.NURSE ---
Pt's room air sat at rest = 91
--- NOTE | 2020-05-07 02:25 | PC.NURSE ---
A&OX4. PT HAS TOLERATED ROOM AIR WELL THROUGHOUT SHIFT. RESPIRATIONS REGULAR AND UNLABORED. BILATERAL LOWER LOBES DIMINISHED. NO COUGH NOTED. ACTIVE BOWEL SOUNDS HEARD IN ALL 4 QUADRANTS. SOFT AND NONTENDER ABDOMEN. PT HAS RECEIVED ZOSYN AND AZITHROMYCIN THIS SHIFT AND TOLERATED WELL. PT RECEIVED TYLENOL ONCE THIS SHIFT TO HELP WITH PAIN IN HIS L HIP. PT RECEIVED ATIVAN ONCE TO HELP RELAX HIM. PT USED THE BSC WITH STANDBY ASSISTANCE. URINE OUTPUT AND MEDIUM SIZED SOFT BROWN BM NOTED. PT TOLERATED WELL. +2 PULSES NOTED THROUGHOUT. HAND RADIO TIME BUYER EQUAL. +1 PITTING EDEMA NOTED TO BLE. PT IS CURRENTLY RESTING IN BED W CALL LIGHT WITHIN REACH. BED IN LOWEST POSITION. VSS. WILL CONTINUE TO MONITOR.
[2020-05-07 04:00] VITALS: BP 162/67; PULSE 89; RESP 21; TEMP 36.8; O2SAT 91
[2020-05-07 06:00] VITALS: BMI 29.7
[2020-05-07 06:13] VITALS: PULSE 83; PULSE 86
[2020-05-07 07:24] LABS: Chloride 103 mmol/L (98-107); Potassium 3.8 mmoL/L (3.5-5.1); Sodium 137 mmol/L (136-145)
[2020-05-07 07:27] LABS: Anion Gap 12.8 mEq/L (5-15); Blood Urea Nitrogen 24 mg/dl (9-20); Calcium 9.2 mg/dl (8.4-10.2); Carbon Dioxide 25 mmol/L (22.0-30.0); Creatinine Clearance Estimated 64 mL/min (50-200); Estimated Glomerular Filt Rate 59 ml/min (>60); GFR (African American) 71 ML/MIN (>60); Glucose 152 mg/dl (74-100)
--- NOTE | 2020-05-07 07:33 | HMH.ACPN2 ---
Internal Medicine - PN: Subj *Date: 05/07/20 *Time: 07:33 Interval history: All day and talking patient has no complaints this morning. He denies shortness of breath both at rest and with exertion and over the last 24 hours recorded O2 sats are all in the low to high 90s. Exam Vital signs and Labs for Last 24 Hours: Temp Pulse Resp BP Pulse Ox 98.2 F 86 21 162/67 H 91 L 05/07/20 04:00 05/07/20 06:13 05/07/20 04:00 05/07/20 04:00 05/07/20 04:00 Laboratory Results - last 24 hr 05/06/20 09:23: Stl Aeromonas (PCR) Not detected, Stl C. cayetanensis PCR Not detected, Stool Rotavirus (PCR) Not detected, Stl Adenov F 40/41 PCR Not detected, Stool Astrovirus (PCR) Not detected, Stool Campylobacter PCR Not detected, Stl C.difficile Tox PCR Not detected, Stool Cryptosporidium PCR Not detected, Stl E.coli Shiga Tox PCR Not detected, Stool E coli O157 PCR Not detected, Stl Enterotoxigenic E PCR Not detected, Stool EPEC (PCR) Not detected, Stool EAEC (PCR) Not detected, Stl E. histolytica PCR Not detected, Stool Giardia Lamblia PCR Not detected, Stool Salmonella PCR Not detected, Stool Sapovirus (PCR) Not detected, Stl P. shigelloides PCR Not detected, Stl Shigella/EIEC PCR Not detected, St Y.enterocolitica PCR Not detected, Stool Vibrio (PCR) Not detected, Stl Vibrio cholerae PCR Not detected, Stl Norovirus GI/GII PCR Not detected 05/07/20 06:50: Sodium 137, Potassium 3.8, Chloride 103, Carbon Dioxide 25, Anion Gap 12.8, BUN 24 H, Creatinine 1.20, Estimated Creat Clear 64, Estimated GFR 59, Est GFR ( Amer) 71, Glucose 152 H, Calcium 9.2 I & O for Last 24 hours: Intake & Output 05/04/20 05/05/20 05/06/20 05/07/20 11:59 11:59 11:59 11:59 Intake Total 790 / 790 1330 / 1330 724 / 724 Output Total 3090 / 3090 3245 / 3245 3 Balance -2300 / -2300 -1915 / -191 721 / 721 Weight 204 lb 9 oz 202 lb 4 oz 196 lb 4 oz Microbiology Reports for the Last 24 Hours: Microbiology 05/04/20 21:30 Blood Blood Culture - Preliminary NO GROWTH AFTER 48 HOURS 05/04/20 21:30 Blood Blood Culture - Preliminary NO GROWTH AFTER 48 HOURS 05/06/20 20:08 Sputum - Expectorated Sputum Gram Stain - Final Narrative: Patient looks well and is sitting up on the side of the bed. Lungs are clear on the left with persistence of rales in the right upper and right lower lobe although improved airflow from previous days and rales are less audible. Heart has a regular rate and rhythm. Assessment and Plan (1) Pneumonia Current visit: Yes Status: Acute Category: Medical Code(s): J18.9 - Pneumonia, unspecified organism (2) Mild aortic stenosis Current visit: Yes Status: Acute Category: Medical Code(s): I35.0 - Nonrheumatic aortic (valve) stenosis (3) Coronary artery disease Current visit: Yes Status: Acute Category: Medical Code(s): I25.10 - Atherosclerotic heart disease of [place] coronary artery without angina pectoris (4) Hyperkalemia Current visit: Yes Status: Acute Category: Medical Code(s): E87.5 - Hyperkalemia (5) Diabetes mellitus Current visit: No Status: Chronic Qualifiers: Diabetes mellitus type: type 2 Diabetes mellitus long term care administrator insulin use: without skilled nursing use Diabetes mellitus complication status: with unspecified complications Category: Medical Code(s): E11.9 - Type 2 diabetes mellitus without complications (6) HHD (hypertensive heart disease) Current visit: No Status: Chronic Qualifiers: Heart failure presence: without heart failure Qualified Code(s): I11.9 - Hypertensive heart disease without heart failure Category: Medical Code(s): I11.9 - Hypertensive heart disease without heart failure (7) Chronic lymphocytic leukemia (CLL), B-cell Current visit: Yes Status: Acute Qualifiers: Leukemia Active/Remission status: in remission Qualified Code(s): C91.11 - Chronic lymphocyt
--- NOTE | 2020-05-07 07:35 | HMH.DCSUM ---
General - General Admission date:: 05/04/20 Discharge date: 05/07/20 HPI HPI: 79-year-old male with history of coronary artery disease, mild aortic stenosis, leukemia presented to the emergency department with acute onset of shortness of breath yesterday morning. Patient felt well when going to bed on Wednesday night. When awaking Wednesday morning he was dyspneic and only had a minor nonproductive cough. He does report 2 episodes of less than a teaspoon of hemoptysis. He developed chest discomfort as the day progressed and ultimately presented to the emergency department. Work-up in the ER revealed right upper and right lower lobe pneumonia on chest x-ray along with mild elevation of patient's white blood cell count and elevation of BNP. Patient was started on broad-spectrum antibiotics as he met sepsis criteria. Patient was given intravenous Lasix as well. Initially patient was placed on BiPAP for respiratory support and this has been transitioned to Vapotherm. This morning the patient reports being chest pain-free and with Vapotherm he reports being free of any shortness of breath. Hospital Course Hospital Course: Patient was admitted and placed on broad-spectrum antibiotics for his right upper and right lower lobe pneumonia. Patient had significant oxygen requirement on admission but within 48 hours was able to be weaned to room air with maintaining O2 sats in the 90s. Lung exam was significant for rales in the right upper and right lower lobes which improved daily during hospitalization. Patient was quite weak on admission and is also improved daily during admission. Vancomycin was discontinued after 24 hours and patient was on Zosyn and azithromycin during the remainder of hospitalization. On May 07 patient was ambulating without dyspnea. He did have some persistence of rales although improved from admission. Patient underwent echocardiogram due to history of coronary artery disease and valve disease. He has moderate aortic stenosis on echocardiogram. Patient was given a single dose of Lasix on May 06. This did not seem to accelerate patient's improvement. Patient has diabetes and his metformin was continued during hospitalization but glipizide was held. Blood sugars remained acceptable. Patient has chronic lymphocytic leukemia which is currently in remission and he follows with oncology in [place] Patient has renal cell carcinoma of the right kidney which is currently being followed by observation and serial CT scans by urology service at the [facility] Objective Vital signs: Temp Pulse Resp BP Pulse Ox 98.2 F 86 21 162/67 H 91 L 05/07/20 04:00 05/07/20 06:13 05/07/20 04:00 05/07/20 04:00 05/07/20 04:00 Results Labs on day of discharge: Labs from last 24 hours 05/07/20 05/06/20 06:50 09:23 Sodium 137 Potassium 3.8 Chloride 103 Carbon Dioxide 25 Anion Gap 12.8 BUN 24 H Creatinine 1.20 Estimated Creat Clear 64 Estimated GFR 59 Est GFR ( Amer) 71 Glucose 152 H Calcium 9.2 Stl Aeromonas (PCR) Not detected Stl C. cayetanensis PCR Not detected Stool Rotavirus (PCR) Not detected Stl Adenov F 40/41 PCR Not detected Stool Astrovirus (PCR) Not detected Stool Campylobacter PCR Not detected Stl C.difficile Tox PCR Not detected Stool Cryptosporidium PCR Not detected Stl E.coli Shiga Tox PCR Not detected Stool E coli O157 PCR Not detected Stl Enterotoxigenic E PCR Not detected Stool EPEC (PCR) Not detected Stool EAEC (PCR) Not detected Stl E. histolytica PCR Not detected Stool Giardia Lamblia PCR Not detected Stool Salmonella PCR Not detected Stool Sapovirus (PCR) Not detected Stl P. shigelloides PCR Not detected Stl Shigella/EIEC PCR Not detected St Y.enterocolitica PCR Not detected Stool Vibrio (PCR) Not detected Stl Vibrio cholerae PCR Not detected Stl Norovirus GI/GII PCR Not detected
[2020-05-07 07:41] LABS: Basophils % 0.3 % (0.1-2.0); Eosinophils # 0.2 K/mm3 (0.0-0.4); Eosinophils % 1.7 % (0.1-12.0); Hemoglobin 9.9 g/dL (14.1-18.0); Lymphocytes # 4.2 K/mm3 (0.7-4.5); Lymphocytes % 42.5 % (10-50); Mean Corpuscular Hemoglobin 36.2 pg (27.0-31.2); Mean Corpuscular Volume 106.4 fl (80-94); Mean Platelet Volume 8.8 fl (7.4-10.4); Monocytes # 0.4 K/mm3 (0.1-1.0); Monocytes % 3.6 % (1.7-9.3); Neutrophils # 5.2 K/mm3 (1.8-7.8); Platelet Count 83 K/mm3 (142-424); Red Blood Count 2.72 M/mm3 (4.60-6.20); Red Cell Distribution Width 13.7 % (11.5-17.5); White Blood Count 9.9 K/mm3 (4.8-10.8)
[2020-05-07 08:00] VITALS: BP 150/55; PULSE 89; RESP 18; TEMP 36.9; O2SAT 94
[2020-05-07 11:20] VITALS: BP 147/57; PULSE 81; RESP 18; TEMP 36.4; O2SAT 93
== END 2020-05-07 11:46 | disposition home or self-care (01) ==
LOC: ER 21:26 → 2ND 22:21
PROVIDERS: Admitting Provider Internal Medicine Adolescent Medicine; Emergency Provider Emergency Medicine; PCP Family Medicine; Visit Provider Family Medicine
DX: J18.9 Pneumonia, unspecified organism (principal); C91.10 Chronic lymphocytic leukemia of B-cell type not having achieved remission; C64.1 Malignant neoplasm of right kidney, except renal pelvis; I11.9 Hypertensive heart disease without heart failure; E11.9 Type 2 diabetes mellitus without complications; Z79.84 Long term (current) use of oral hypoglycemic drugs; I25.10 Atherosclerotic heart disease of native coronary artery without angina pectoris; I35.0 Nonrheumatic aortic (valve) stenosis; Z88.5 Allergy status to narcotic agent; Z88.1 Allergy status to other antibiotic agents; R06.9 Unspecified abnormalities of breathing
CPT/HCPCS: 36415; 71045; 80048; 80053; 82803; 83605; 83880; 84484; 85007; 85025; 86328; 87040; 87070; 87205; 87507; 93005; 93306; 94640; 96365; 96375; 99285; G0378; J0456; J2543; J3370

== ENCOUNTER 2020-05-11 13:36 | Emergency (ER) | payer MEDICARE, SELFPAY ==
[2020-05-11 14:17] VITALS: BP 124/50; PULSE 68; RESP 20; TEMP 36.9; O2SAT 96; BMI 27.3
--- NOTE | 2020-05-11 14:22 | HMH.EDUTC ---
[facility] – [place] Disposition Clinical Impression: Oral candidiasis Disposition: Home, Self-Care Condition on Discharge: Good Instructions: DI for Thrush, Thrush-Adult, Canker Sores (Alternative Therapy), Nystatin Additional Instructions: Use medication as instructed 4ml inside of mouth, swish and retain as long as possible then spit *Over the counter Milk of Magnesium may help with soreness and irritation of canker sores Follow up with Family Doctor if no improvement or any worsening of symptoms Straight to ER if life threatening symptoms Prescriptions: Nystatin [Nystatin Susp 500,000 Units/5mL Udc] 4 ml PO QID 10 Days #160 udc Transmission Status: Pending to [id number] Referrals: Yulisa Fong MD [Primary Care Provider] - As needed Time of Disposition: 14:32 Medical Decision Making - Abdoul Inquiry Pt receiving controlled substance: No Abdoul was queried for this patient: No Vital Signs: 05/11/20 14:17 Temperature 98.5 F Temperature Source Oral Pulse Rate [Right Brachial] 68 Respiratory Rate 20 Blood Pressure [Right Arm] 124/50 L Blood Pressure Mean [Right Arm] 74 Blood Pressure Source [Right Arm] Automatic Cuff Blood Pressure Position [Right Arm] Sitting 02 Sat by Pulse Oximetry 96 Oxygen Delivery Method Room Air [facility] – [place] HPI - General Stated complaint: mouth Time Seen by Provider: 05/11/20 14:22 Mode of Arrival: Ambulatory Source of Information: Patient Limitations: No Limitations Description of Symptoms (Recalled from Triage Doc. by RN): PATIENT C/O SORES ON GUMS SINCE WEDNESDAY AFTERNOON. STATES HE IS HAVING DIFFICULTY EATING D/T PAIN. RECENTLY DISCHARGED FROM HOSPITAL ON WEDNESDAY WHERE HE WAS TREATED FOR PNEUMONIA HEENT Symptoms (Recalled from RN notes): Yes Resp Symptoms (Recalled from RN notes): No Skin Symptoms (Recalled from RN notes): No MS Symptoms (Recalled from RN notes): No Functional Status (Recalled from RN notes): WNL - History of Present Illness Provider Complaint: states that patient has been complaining of burning, white patchy like areas on his tongue and gums and small sore like areas on his upper gum States that he has been complaining it hurts to chew and eat States that today he was still complaining so she brought him in States that he was recently in the hospital for pneumonia and was on alot of antibiotics - Related Data Home Medications Medication Instructions Recorded Confirmed atorvastatin 20 mg tablet 20 mg PO DAILY 09/13/17 05/05/20 glipizide 10 mg tablet 10 mg PO BID tab 09/13/17 05/04/20 metformin 500 mg tablet 1,000 mg PO BIDWM tab 09/13/17 05/05/20 omeprazole 20 mg capsule,delayed 20 mg PO DAILY 09/13/17 05/05/20 release acetaminophen 500 mg tablet 500 mg PO Q6HP PRN 09/14/17 05/05/20 Amlodipine Besylate [Amlodipine 10 mg PO DAILY 01/14/18 05/04/20 10mg Tab] LORazepam [Ativan 1mg tablet] 1 mg PO TID 01/14/18 05/04/20 Chlorthalidone 25 mg PO DAILY 05/04/20 05/05/20 Aspirin [Aspirin 81mg chewable 81 mg PO DAILY 05/05/20 05/05/20 tab] Celecoxib [Celebrex 200mg cap] 200 mg PO BIDWM 05/05/20 05/05/20 Multivit-Mins/Iron/Folic/Lycop 1 each PO DAILY 05/05/20 05/05/20 [Centrum Men's Tablet] Nitroglycerin [Nitrostat 0.4mg SL 0.4 mg SL Q5MINP PRN 05/05/20 05/05/20 Tablet] carvediloL [Carvedilol 25mg Tab] 25 mg PO BID 05/05/20 05/05/20 lisinopriL [Lisinopril 20mg Tab] 20 mg PO DAILY 05/05/20 05/05/20 Previous Rx's Medication Instructions Recorded Amoxicillin/Potassium Clav 1 tab PO BID #14 tab 05/07/20 [Amox-Clav 875-125 mg Tablet] Azithromycin [Z-Janes 250mg Tab] 250 mg PO DAILY #3 tab 05/07/20 Nystatin [Nystatin Susp 500,000 4 ml PO QID 10 Days #160 udc 05/11/20 Units/5mL Udc] Allergies Allergy/AdvReac Type Severity Reaction Status Date / Time ciprofloxacin [From CIPRO] Allergy Mild Verified 06/13/19 11:03 codeine [CODEINE] Allergy Mild Verified 06/13/19 11:03 - Worker's Comp Is this a Worker's Comp case?: No
[2020-05-11 14:33] VITALS: BP 124/50; PULSE 68; RESP 20; TEMP 36.9; O2SAT 96
== END 2020-05-11 14:37 | disposition home or self-care (01) ==
PROVIDERS: Emergency Provider Nurse Practitioner; PCP Family Medicine
DX: B37.0 Candidal stomatitis (principal); C64.9 Malignant neoplasm of unspecified kidney, except renal pelvis; E10.9 Type 1 diabetes mellitus without complications; I10 Essential (primary) hypertension; Z88.1 Allergy status to other antibiotic agents; Z88.5 Allergy status to narcotic agent; Z87.891 Personal history of nicotine dependence
CPT/HCPCS: G0463; 99201

== ENCOUNTER 2020-11-16 05:19 | Observation (INO) | payer MEDICARE, SELFPAY ==
[2020-11-16] VITALS (31 sets, daily range): BP systolic 94–141; BP diastolic 40–77; PULSE 58–70; RESP 12–18; TEMP 36.3–36.7; O2SAT 90–98; BMI 28.1; BMI 27.3
--- NOTE | 2020-11-16 05:14 | CT_ITS ---
PROCEDURE: CT HEAD/BRAIN WO CON CLINICAL INDICATION: weakness History of lymphoma and cancer of the scan and kidney COMPARISON: No exams were available for comparison TECHNIQUE: Axial images obtained. All CT scans at the facility use one or more dose reduction, viz: automated exposure control, ma/kV adjustment per patient size (including targeted exams where dose is matched to indication, i.e. head), or iterative reconstruction technique. FINDINGS: No midline shift, mass effect, intracranial hemorrhage, hydrocephalus, or extra-axial fluid collection is evident. There is generalized atrophy with hypoattenuation of the periventricular white matter consistent with microangiopathic changes. The calvarium has an unremarkable appearance. There is a small amount fluid within the tip of the left mastoid sinus and there is minimal mucosal thickening of the ethmoid sinuses. IMPRESSION: No acute intracranial finding Dictated by: Venancio Mondragon MD 11/16/2020 07:31 Venancio Mondragon MD in [place] 11/16/2020 07:31
--- NOTE | 2020-11-16 05:14 | XR_ITS ---
PROCEDURE: XR CHEST PORTABLE CLINICAL HISTORY: weakness COMPARISON: CR CXR CHEST(2 VIEWS-NOT PORTABLE) from 12/03/2016 CR CXR2V XR chest 2V from 10/11/2017 CR XR CHEST PORTABLE from 05/04/2020 FINDINGS: Unremarkable heart size. Mediastinum is slightly prominent The lungs are clear without infiltrates, suspicious nodules, or pleural effusions. Skin fold artifact bilaterally in the lung bases. No acute bony findings. IMPRESSION: No acute finding. Mild prominence of the mediastinum Dictated by: Venancio Mondragon MD 11/16/2020 07:59 Venancio Mondragon MD in [place] 11/16/2020 07:59
--- NOTE | 2020-11-16 05:27 | PC.NURSE ---
called maurisio to obtain labs.
--- NOTE | 2020-11-16 05:29 | HMH.EDWEAK ---
ED Disposition Clinical Impression: Retroperitoneal lymphadenopathy Leukemia, acute lymphoid Qualifiers: Leukemia Active/Remission status: without remission Qualified Code(s): C91.00 - Acute lymphoblastic leukemia not having achieved remission Renal cell carcinoma Qualifiers: Laterality: right Qualified Code(s): C64.1 - Malignant neoplasm of right kidney, except renal pelvis Anemia Qualifiers: Anemia type: unspecified type Qualified Code(s): D64.9 - Anemia, unspecified AAA (abdominal aortic aneurysm) Qualifiers: Presence of rupture: without rupture Qualified Code(s): I71.4 - Abdominal aortic aneurysm, without rupture Disposition: Admitted as Observation Condition on Discharge: Fair Referrals: Yulisa Fong MD [Primary Care Provider] - - Critical Care Critical Care Time: No Attestation: On 11/16/20, the high probability of a clinically significant, sudden or life threatening deterioration of the following system(s) required my full and direct attention, intervention and personal management. The time I documented below is in addition to time spent performing reported procedures but includes the following listed in this critical care notation. Medical Decision Making - Medical Records Medical records reviewed: Yes: I reviewed the patient's medical records. - Abdoul Inquiry Pt receiving controlled substance: No Vital Signs: 11/16/20 05:20 11/16/20 05:30 11/16/20 06:17 Temperature 97.7 F Temperature Source Oral Pulse Rate [Right Brachial] 58 L 61 63 Respiratory Rate 18 17 18 Blood Pressure [Right Arm] 141/59 H 141/59 H 117/54 L Blood Pressure Mean [Right Arm] 86 86 75 Blood Pressure Source [Right Arm] Automatic Cuff Automatic Cuff Blood Pressure Position [Right Arm] Sitting Supine 02 Sat by Pulse Oximetry 98 97 97 Oxygen Delivery Method Room Air Room Air 11/16/20 07:19 11/16/20 07:44 Temperature Temperature Source Pulse Rate [Right Brachial] 67 69 Respiratory Rate 18 18 Blood Pressure [Right Arm] 139/52 L 138/58 L Blood Pressure Mean [Right Arm] 81 84 Blood Pressure Source [Right Arm] Automatic Cuff Automatic Cuff Blood Pressure Position [Right Arm] Supine Supine 02 Sat by Pulse Oximetry 97 96 Oxygen Delivery Method Room Air Room Air - Lab Data Lab results reviewed: Yes: I reviewed the patient's lab results. Lab Results 11/16/20 05:30: WBC 20.7 H*, RBC 2.23 L, Hgb 8.0 L, Hct 25.2 L, MCV 113.0 H, MCH 36.0 H, MCHC 31.9, RDW 15.3, Plt Count 91 L, MPV 8.3, Neut % (Auto) 10.2 L, Lymph % (Auto) 86.7 H, [place] % (Auto) 1.1 L, Eos % (Auto) 1.5, Baso % (Auto) 0.5, Neut # (Auto) 2.1, Lymph # (Auto) 18.0 H, [place] # (Auto) 0.2, Eos # (Auto) 0.3, Baso # (Auto) 0.1, Total Counted 100, Neutrophils % (Manual) 36 L, Band Neutrophils % 1.0, Lymphocytes % (Manual) 62 H, Basophils % (Manual) 1.0, Platelet Estimate Marked decrease, Hypochromasia 1+, Macrocytosis 3+, ESR 36 H 11/16/20 05:30: Sodium 135 L, Potassium 4.3, Chloride 107, Carbon Dioxide 21 L, Anion Gap 11.3, BUN 41 H, Creatinine 1.50 H, Estimated Creat Clear 47, Estimated GFR 45 L, Est GFR ( Amer) 55 L, Glucose 57 L, Calcium 8.4, Total Bilirubin 0.4, Direct Bilirubin 0.0, Conjugated Bilirubin 0.0, Indirect Bilirubin 0.4, Unconjugated Bilirubin 0.3, AST 24, ALT 8 L, Alkaline Phosphatase 55, Troponin I < 0.01, C-Reactive Protein 0.8, Total Protein 5.5 L, Albumin 3.4 L 11/16/20 05:30: Lactate 0.5 L 11/16/20 05:30: NT-Pro-B Natriuret Pep 1040 H 11/16/20 05:43: Urine Color Yellow, Urine Appearance Clear, Urine pH 6.5, Ur Specific [place] 1.010, Urine Protein Negative, Urine Glucose (UA) Negative, Urine Ketones Negative, Urine Blood Negative, Urine Nitrate Negative, Urine Bilirubin Negative, Urine Urobilinogen 0.2, Ur Leukocyte Esterase Negative, Amorphous Sediment Trace Result diagrams: 11/16/20 05:30 11/16/20 05:30 Orders (Tests/Meds): ED MEDICATIONS Generic Name Dose Route Start Last Admin Trade Name Freq PRN Reason Stop Dose Admin Sod
--- NOTE | 2020-11-16 05:34 | ECG_ITS ---
APPROVED REPORT Exam: Resting ECG HR:59 bpm ECG Measurements Heart Rate 59 AXES SC 226 P -9 QRSd 106 QRS 56 QT 430 T 54 QTc 425 Conclusion Sinus bradycardia with 1st degree AV block Incomplete right bundle branch block Borderline ECG Electronically signed by : Kuldip Hays, 11/16/2020 16:28:39
[2020-11-16 05:38] LABS: Eosinophils # 0.3 K/mm3 (0.0-0.4); Monocytes # 0.2 K/mm3 (0.1-1.0); Platelet Count 91 K/mm3 (142-424); Red Blood Count 2.23 M/mm3 (4.60-6.20)
--- NOTE | 2020-11-16 05:39 | CT_ITS ---
PROCEDURE: CT LUMBAR SPINE WO CON CLINICAL HISTORY: acute numbness and weakness, old spinal injury Acute numbness in left leg COMPARISON: No exams were available for comparison TECHNIQUE: Axial images obtained with sagittal and coronal reformats. All CT scans at the facility use one or more dose reduction, viz: automated exposure control, ma/kV adjustment per patient size (including targeted exams where dose is matched to indication, i.e. head), or iterative reconstruction technique. FINDINGS: There is normal alignment. No acute fracture or dislocation is evident. Old compression changes are present involving the L4 vertebral body. There are degenerative changes with anterior osteophytes. L1-L2: Mild concentric bulging disc with facet and ligamentum hypertrophy. L2-L3: Facet ligamentum hypertrophy with mild bulging disc with bilateral lateral recess narrowing and mild foraminal narrowing. L3-L4: Chronic wedge compression changes of L4. Bulging disc with facet and ligamentum hypertrophy with bilateral lateral recess narrowing and mild foraminal narrowing with canal stenosis. L4-5: Degenerative disc disease with bulging disc and endplate hypertrophic change and with facet and ligamentum hypertrophy with canal stenosis and bilateral foraminal narrowing. Postsurgical changes from prior left-sided laminotomy. L5-S1: Degenerative disc disease with bulging disc with mild bilateral foraminal narrowing. There is retroperitoneal adenopathy IMPRESSION: Multilevel lumbar spondylosis as detailed above with facet and ligamentum hypertrophy and bulging discs with lateral recess and foraminal narrowing and canal stenosis. Chronic wedge compression changes of L4 without retropulsion with postsurgical change at L4-5 Retroperitoneal adenopathy Dictated by: Venancio Mondragon MD 11/16/2020 07:57 Venancio Mondragon MD in [place] 11/16/2020 07:57
--- NOTE | 2020-11-16 05:39 | CT_ITS ---
PROCEDURE: CT THORACIC SPINE WO CON CLINICAL HISTORY: acute numbness and weakness, old spinal injury COMPARISON: No exams were available for comparison TECHNIQUE: Axial images obtained with sagittal and coronal reformats. All CT scans at the facility use one or more dose reduction, viz: automated exposure control, ma/kV adjustment per patient size (including targeted exams where dose is matched to indication, i.e. head), or iterative reconstruction technique. FINDINGS: Normal alignment. Multilevel anterior osteophytes are present. No acute fracture or dislocation. No lytic or blastic change. Incidentally noted is extensive supraclavicular adenopathy and mild mediastinal adenopathy. There is mild fusiform dilatation of the proximal descending thoracic aorta at 3.5 cm. Adenopathy is present in the periaortic region along the descending thoracic aorta. No paraspinal mass IMPRESSION: 1. Mild degenerative changes of the thoracic spine. No acute fracture or paraspinal mass. 2. Extensive adenopathy in the supraclavicular region with mediastinal adenopathy as well as periaortic adenopathy. 3. Mild fusiform aneurysmal dilatation of the proximal descending thoracic aorta at 3.5 cm Dictated by: Venancio Mondragon MD 11/16/2020 07:49 Venancio Mondragon MD in [facility] 11/16/2020 07:49
[2020-11-16 05:47] LABS: Microscopic, Urine URINE MICROSCOPIC (MICROSCOPIC)
--- NOTE | 2020-11-16 05:47 | CT_ITS ---
PROCEDURE: CT ABDOMEN PELVIS W CON CLINICAL INDICATION: pain Abdominal pain, weakness, history of leukemia skin cancer and kidney cancer COMPARISON: CT AGABD CT angio abdomen from 09/27/2018 TECHNIQUE: IV Contrast: 75ML Isovue 370 Oral Contrast None Axial images obtained with sagittal and coronal reformats. All CT scans at the facility use one or more dose reduction, viz: automated exposure control, ma/kV adjustment per patient size (including targeted exams where dose is matched to indication, i.e. head), or iterative reconstruction technique. FINDINGS: LOWER THORAX: Calcifications noted of the aortic valve and coronary arteries. ABDOMEN & PELVIS: Periportal edema noted involving the liver. No focal liver lesion is demonstrated. The gallbladder is slightly distended.. There is splenomegaly at 16 cm. The adrenal glands have an unremarkable appearance. Pancreatic atrophy is noted. There is a right renal mass involving the upper pole of the right kidney measuring 4.3 cm slightly increased in size previously measuring 4 cm on 09/27/2018. Low-density changes are present in the central aspect of the mass. This is highly suspicious for neoplasm. Small bilateral renal cysts are present. There is extensive retroperitoneal adenopathy which is markedly increased compared to the previous exam consistent with lymphoma. The mantle of adenopathy in the retroperitoneum measures up to 14 cm transverse and 10 cm AP. There is adenopathy also in the periportal region. This is displacing the duodenal bulb anteriorly. Adenopathy surrounds the superior mesenteric artery. There is no evidence of duodenal obstruction. Mesenteric adenopathy also noted. There is bilateral inguinal adenopathy greater on the right with nodes in the right inguinal region measuring up to 3 cm. No intestinal obstruction or free air. No evidence of appendicitis. Colonic diverticulosis present without evidence diverticulitis. There is a Aguirre catheter present. There is a small right inguinal hernia containing fat There is an infrarenal fusiform abdominal aortic aneurysm which measures up to 3.3 cm transverse and 3.4 cm AP. Probably not significantly changed. There are degenerative changes in the lumbar spine with wedge old compression changes of L4. Osteoarthritic changes also present involving the hips. IMPRESSION: 1. Extensive retroperitoneal, periportal, mesenteric and inguinal adenopathy consistent with lymphoma which is markedly progressed compared to the previous exam consistent with recurrence of lymphoma. The enlarged nodes are displacing the duodenum anteriorly but without evidence of obstruction. 2. Splenomegaly. 3. 4.3 cm right renal mass consistent with neoplasm slightly larger. 4. 3.4 cm infrarenal abdominal aortic aneurysm not significantly changed Dictated by: Venancio Mondragon MD 11/16/2020 07:44 Venancio Mondragon MD in [place] 11/16/2020 07:44
[2020-11-16 05:49] LABS: Basophils # 0.1 K/mm3 (0-0.2); Basophils % 0.5 % (0.1-2.0); Eosinophils % 1.5 % (0.1-12.0); Lactic Acid 0.5 mmol/L (0.7-2.1); Lymphocytes % 86.7 % (10-50); Mean Corpuscular HGB Conc 31.9 g/dL (31.8-35.4); Mean Platelet Volume 8.3 fl (7.4-10.4); Monocytes % 1.1 % (1.7-9.3); Neutrophils # 2.1 K/mm3 (1.8-7.8); Red Cell Distribution Width 15.3 % (11.5-17.5); White Blood Count 20.7 K/mm3 (4.8-10.8)
[2020-11-16 05:51] LABS: Alanine Aminotransferase 8 U/L (12-78); Albumin Level 3.4 g/dl (3.5-5.0); Alkaline Phosphatase 55 U/L (38-126); Anion Gap 11.3 mEq/L (5-15); Aspartate Amino Transferase 24 U/L (17-59); Bilirubin,Indirect 0.4 mg/dL (0.0-0.9); Bilirubin,Total 0.4 mg/dl (0.2-1.3); Bilirubin,Unconjugated 0.3 mg/dL (0.0-1.1); Blood Urea Nitrogen 41 mg/dl (9-20); Calcium 8.4 mg/dl (8.4-10.2); Carbon Dioxide 21 mmol/L (22.0-30.0); Chloride 107 mmol/L (98-107); Creatinine Clearance Estimated 47 mL/min (50-200); Estimated Glomerular Filt Rate 45 ml/min (>60); GFR (African American) 55 ML/MIN (>60); Glucose 57 mg/dl (74-100); Hematocrit 25.2 % (42.0-52.0); MANUAL DIFFERENTIAL MANUAL DIFFERENTIAL (MANUAL DIFF); Neutrophils % 10.2 % (37.0-80.0); Potassium 4.3 mmoL/L (3.5-5.1); Sodium 135 mmol/L (136-145); Total Protein,Serum 5.5 g/dl (6.3-8.2)
[2020-11-16 05:57] LABS: C-Reactive Protein 0.8 mg/L (0-4)
[2020-11-16 05:57] LABS: Appearance,Urine CLEAR (Clear); Bilirubin,Urine Negative (Negative); Blood, Urine Negative (Negative); Color,Urine YELLOW (Yellow); Glucose,Urine (UA) Negative (Negative); Ketones,Urine Negative (Negative); Leukocyte Esterase,Urine Negative (Negative); Nitrate,Urine Negative (Negative); PH,Urine 6.5 (5.0-8.5); Protein,Urine Negative (Negative); Urobilinogen,Urine 0.2 EU/dl (0.2)
[2020-11-16 06:03] LABS: Lymphocytes % 62 % (10-50); NT Pro Brain Natriuretic Pep. 1040 pg/mL (0-450); Neutrophils % 36 % (42-76); Total Cells Counted 100
[2020-11-16 06:04] LABS: Hypochromasia 1+; Macrocytosis 3+; Platelet Estimate Marked Decrease
[2020-11-16 06:05] LABS: Troponin I < 0.01 ng/ml (0.00-0.034)
[2020-11-16 06:06] LABS: Amorphous Sediment,Urine Trace /lpf
[2020-11-16 06:20] LABS: Erythrocyte Sedimentation Rate 36 mm/hr (0-20)
--- NOTE | 2020-11-16 07:21 | PC.NURSE ---
family at bedside, pt and family updated on plan of care. pt c/o lower back pain radiating down legs.
--- NOTE | 2020-11-16 07:37 | PC.NURSE ---
checked on pt got him a warm blanket
--- NOTE | 2020-11-16 08:12 | PC.NURSE ---
pt resting peacefully in bed
--- NOTE | 2020-11-16 08:18 | PC.NURSE ---
got pt some water
--- NOTE | 2020-11-16 08:46 | PC.NURSE ---
REPORT TO CR[facility] P[facility]
--- NOTE | 2020-11-16 08:59 | HMH.HP ---
*Admission Date: 11/16/20 *Chief complaint: Numbness of arms and legs *History of present illness: 80-year-old male was in his normal state of health yesterday when around midnight he developed numbness and weakness in both arms and legs. When his symptoms did not seem to be improving he came to the emergency department early in the morning on November 16. By the time of my interview patient reports improvement in symptoms. His reports this has happened before although not to the severity of his current episode. Patient has CLL, renal cell carcinoma, coronary artery disease. He denies fevers or chills. He admits to weakness. He denies cough. While patient was undergoing work-up in the emergency department he reports some chest pain. Patient is recently seen his primary care physician over worsening lower extremity edema and had diuretics increased. Work-up in the emergency department was significant for elevated white blood cell count consistent with recurrence of his CLL. CT scans revealed extensive lymphadenopathy along with a growing right renal mass. Up to the point of the previously mentioned findings patient's CLL was believed to be in remission. He follows with Dr. Flor in [place]. Regarding his renal cell carcinoma there has apparently been a desire to remove the tumor by his urologist Dr. Gao but surgery was declined due to the belief that he is unable to stop his dual antiplatelet therapy. 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 He is not considered a surgical candidate by his spinal surgeon due to increased risk of complications [facility] History I have reviewed the patient's past medical history: Yes Medical History: Reports:: Aneurysm (Aortic), Anxiety, Cancer (Leukemia, suspected renal cell carcinoma from CT scan of 2018), Diabetes Mellitus Type 1, Hypertension Denies:: Diabetes Mellitus Type 2, Internal Pacemaker, MRSA, Seizures *Have you ever received a pneumonia vaccine?: Yes *Have you received a flu vaccine this season?: Yes Other Medical History: Reports: Anemia, Arthritis Other Surgeries: Yes: Cardiac Surgery, Coronary Stent, Other. No: Pacemaker Amputation: No Fractures: No - *Social History Smoking Status: Former smoker #Yrs smoked (if former smoker): 20 Alcohol Intake: never Alcohol Intake Frequency:: other Substance Use Type: denies use *Occupational Status:: other Housing: house Household Members: spouse *Travel in the last 8 weeks: None - Psychiatric History Pschychiatric History:: Reports:: Anxiety Family Hx:: No significant family history Review of Systems - Constitutional Reports lack of energy, Reports weakness, Denies anorexia, Denies body ache(s), Denies chills, Denies excessive sweating, Denies night sweats - Eyes Denies blind spots, Denies blurry vision - ENT Reports abnormal hearing, Denies dry mouth, Denies ear pain, Denies nosebleed - *Cardiovascular Reports chest pain, Reports chest pain at rest - *Respiratory Denies change in phlegm color, Denies chest congestion, Denies cough, Denies shortness of breath - *Gastrointestinal Denies abdominal pain, Denies belching, Denies bloating, Denies change in bowel habits - *Genitourinary Denies painful urination, Denies blood in urine - *Musculoskeletal Reports joint pain, Reports back pain, Reports muscle weakness - Integumentary/Breasts Denies bleeding lesions, Denies change in hair, Denies change in skin color, Denies excessive hair growth - *Neurologic Reports weakness (All 4 extremities), Denies headache(s), Denies tingling/numbness/burning sensations, Denies seizure-like activity - Psychiatric Denies anxiety - Endocrine Denies cold intolerance, Denies excessive sweating, Denies flushing Meds Home Medications Medication Instructions Recorded Confirmed Type atorvastatin 20 mg tablet 20 mg PO DAILY
--- NOTE | 2020-11-16 09:06 | PC.NURSE ---
contacted dietary to send breakfast tray to pt room on second floor, notified second floor staff
--- NOTE | 2020-11-16 09:08 | P.CONPHA_ITS ---
[facility] Pharmacy VTE Monitoring - Patient Demographics Admission date: 11/16/20 Report Date: 11/16/20 Time: 09:08 Allergies/Adverse Reactions: Patient Allergies ciprofloxacin [From CIPRO] Allergy (Mild, Verified 06/13/19 11:03) codeine [CODEINE] Allergy (Mild, Verified 06/13/19 11:03) Height: 1.73 m Weight: 83.915 kg Patient Problems: Current Active Problems Chronic lymphocytic leukemia (CLL), B-cell (Chronic) Renal cell carcinoma (Chronic) Anemia (Acute) Retroperitoneal lymphadenopathy (Acute) AAA (abdominal aortic aneurysm) (Chronic) HHD (hypertensive heart disease) (Chronic) Leukemia, acute lymphoid (Acute) Diabetes mellitus (Chronic) - VTE Risk Labs: VTE Related Lab Results Hgb 8.0 g/dL (14.1-18.0) L 11/16/20 05:30 Hct 25.2 % (42.0-52.0) L 11/16/20 05:30 Plt Count 91 K/mm3 (142-424) L 11/16/20 05:30 BUN 41 mg/dl (9-20) H 11/16/20 05:30 Creatinine 1.50 mg/dl (0.66-1.25) H 11/16/20 05:30 Estimated Creat Clear 47 mL/min (50-200) 11/16/20 05:30 - Prophylaxis VTE Prophylaxis Ordered?: Yes Types of VTE Prophylaxis: TEDS Knee High Location of Applied Device: Bilateral Lower Extremeties
[2020-11-16 09:24] LABS: Troponin I < 0.01 ng/ml (0.00-0.034)
[2020-11-16 10:39] LABS: Iron 59 ug/dL (49-181)
[2020-11-16 11:38] LABS: POC Glucose,Bedside 136 (70-110)
[2020-11-16 11:53] LABS: Folate > 20.00 ng/mL; Vitamin B12 > 1000 pg/mL (239-931)
[2020-11-16 12:27] LABS: Troponin I < 0.01 ng/ml (0.00-0.034)
--- NOTE | 2020-11-16 12:28 | HMH.PHAINT ---
MEDICATION RECONCILIATION COMPLETED ON PATIENT USING EXTERNAL FILL HISTORY FROM PHARMACY. -EVELYN PITTS, XUAND
[2020-11-16 12:30] LABS: Total Iron Binding Capacity 305 ug/dL (261-462)
[2020-11-16 17:01] LABS: POC Glucose,Bedside 94 (70-110)
[2020-11-16 17:23] LABS: Hematocrit 31.3 % (42.0-52.0)
[2020-11-16 17:24] LABS: Hemoglobin 10.1 g/dL (14.1-18.0)
--- NOTE | 2020-11-16 18:04 | PC.NURSE ---
shift note: pt new admit this shift. Dx: CLL exacerbation. Pt received 2 units PRBCs today. No complaints of dyspnea. Had a CEBALLOS early this morning relieved with Tylenol. Aguirre cath with adequate UOP. Did not have a BM. BLE with 2+ pitting edema. BLE tender when palpated. No sticks in right arm secondary to IV access and being an extremely hard stick for IVs and/or blood work. Tolerates a DM diet. Appetite fair. Bilateral lungs clear. Is A&O. No other issues noted.
[2020-11-16 21:15] LABS: POC Glucose,Bedside 150 (70-110)
[2020-11-16 21:49] LABS: Occult Blood,Stool Negative (Negative)
--- NOTE | 2020-11-16 21:58 | PC.NURSE ---
He is A&Ox4. 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 He is on RA. He reports having frequent diarrhea for years. He did have 1 BM that was soft. Occult stool negative. He transferred to the [facility] with standby assist. His BLE are dry and scaly. Scabbed areas on bilateral inner thighs. F/c is patent and draining straw colored urine. Non-productive cough. Glucose 150 at bedtime.
[2020-11-17] VITALS: BP 139/51; PULSE 68; PULSE 70; RESP 16; TEMP 36.9; O2SAT 94
[2020-11-17 04:00] VITALS: BP 141/52; PULSE 69; PULSE 70; RESP 20; TEMP 36.6; O2SAT 93
[2020-11-17 05:12] LABS: POC Glucose,Bedside 95 (70-110)
[2020-11-17 06:00] VITALS: BMI 27.3
[2020-11-17 07:06] LABS: Basophils # 0.1 K/mm3 (0-0.2); Basophils % 0.5 % (0.1-2.0); Eosinophils # 0.3 K/mm3 (0.0-0.4); Eosinophils % 2.4 % (0.1-12.0); Hemoglobin 10.4 g/dL (14.1-18.0); Lymphocytes # 10.7 K/mm3 (0.7-4.5); Lymphocytes % 79.8 % (10-50); Mean Corpuscular HGB Conc 32.4 g/dL (31.8-35.4); Mean Corpuscular Hemoglobin 34.1 pg (27.0-31.2); Mean Corpuscular Volume 105.2 fl (80-94); Mean Platelet Volume 8.4 fl (7.4-10.4); Monocytes # 0.2 K/mm3 (0.1-1.0); Monocytes % 1.6 % (1.7-9.3); Neutrophils # 2.1 K/mm3 (1.8-7.8); Neutrophils % 15.8 % (37.0-80.0); Platelet Count 80 K/mm3 (142-424); Red Blood Count 3.04 M/mm3 (4.60-6.20); Red Cell Distribution Width 19.3 % (11.5-17.5); White Blood Count 13.4 K/mm3 (4.8-10.8)
[2020-11-17 07:09] LABS: MANUAL DIFFERENTIAL MANUAL DIFFERENTIAL (MANUAL DIFF)
[2020-11-17 07:13] LABS: Chloride 107 mmol/L (98-107); Potassium 4.1 mmoL/L (3.5-5.1); Sodium 138 mmol/L (136-145)
[2020-11-17 07:16] LABS: Anion Gap 12.1 mEq/L (5-15); Blood Urea Nitrogen 26 mg/dl (9-20); Carbon Dioxide 23 mmol/L (22.0-30.0); Creatinine Clearance Estimated 53 mL/min (50-200); Estimated Glomerular Filt Rate 53 ml/min (>60); GFR (African American) 64 ML/MIN (>60)
[2020-11-17 07:17] LABS: Calcium 8.9 mg/dl (8.4-10.2); Glucose 148 mg/dl (74-100)
[2020-11-17 07:18] LABS: Anisocytosis 2+; Eosinophils % 2 % (0-3); Lymphocytes % 73 % (10-50); Macrocytosis 2+; Neutrophils % 24 % (42-76); Platelet Estimate Marked Decrease; Total Cells Counted 100
[2020-11-17 07:19] LABS: Poikilocytosis 1+
[2020-11-17 08:00] VITALS: BP 136/50; PULSE 60; PULSE 66; RESP 18; TEMP 37; O2SAT 95
--- NOTE | 2020-11-17 08:26 | HMH.ACPN2 ---
Internal Medicine - PN: Subj *Date: 11/17/20 *Time: 08:26 Interval history: Patient received 2 units of packed red blood cells yesterday which is raise his hemoglobin up over 10. He reports feeling well. The abnormal sensations that he felt in his extremities have resolved. Patient has been able to ambulate to the bedside commode. Exam Vital signs and Labs for Last 24 Hours: Temp Pulse Resp BP Pulse Ox 98.6 F 66 18 136/50 L 95 11/17/20 08:00 11/17/20 08:00 11/17/20 08:00 11/17/20 08:00 11/17/20 08:00 Laboratory Results - last 24 hr 11/16/20 08:50: Troponin I < 0.01 11/16/20 09:50: Blood Type A Positive, Antibody Screen Negative, Crossmatch ([facility]) See Detail 11/16/20 09:50: Iron 59, TIBC 305, Iron Saturation [id number], Vitamin B12 > 1000 H, Folate > 20.00 11/16/20 11:29: POC Glucose 136 H 11/16/20 11:45: Troponin I < 0.01 11/16/20 16:55: POC Glucose 94 11/16/20 17:13: Hgb 10.1 L D, Hct 31.3 L 11/16/20 19:34: POC Glucose 150 H 11/16/20 21:36: Stool Occult Blood Negative 11/17/20 05:05: POC Glucose 95 11/17/20 06:21: WBC 13.4 H D, RBC 3.04 L D, Hgb 10.4 L, Hct 32.0 L, MCV 105.2 H, MCH 34.1 H, MCHC 32.4, RDW 19.3 H D, Plt Count 80 L, MPV 8.4, Neut % (Auto) 15.8 L, Lymph % (Auto) 79.8 H, [place] % (Auto) 1.6 L, Eos % (Auto) 2.4, Baso % (Auto) 0.5, Neut # (Auto) 2.1, Lymph # (Auto) 10.7 H, [place] # (Auto) 0.2, Eos # (Auto) 0.3, Baso # (Auto) 0.1, Total Counted 100, Neutrophils % (Manual) 24 L, Band Neutrophils % 1.0, Lymphocytes % (Manual) 73 H, Eosinophils % (Manual) 2, Platelet Estimate Marked decrease, Poikilocytosis 1+, Anisocytosis 2+, Macrocytosis 2+ 11/17/20 06:21: Sodium 138, Potassium 4.1, Chloride 107, Carbon Dioxide 23, Anion Gap 12.1, BUN 26 H D, Creatinine 1.30 H, Estimated Creat Clear 53, Estimated GFR 53 L, Est GFR ( Amer) 64, Glucose 148 H, Calcium 8.9 I & O for Last 24 hours: Intake & Output 11/14/20 11/15/20 11/16/20 11/17/20 11:59 11:59 11:59 12:59 Intake Total 1000 / 1000 3326 / 3326 Output Total 3650 / 3650 Balance 1000 / 1000 -324 / -324 Weight 179 lb 8 oz 180 lb 1 oz Microbiology Reports for the Last 24 Hours: Microbiology 11/16/20 05:15 Nasopharyngeal Coronavirus COVID-19 PCR - Final Narrative: Patient looks comfortable seated in the chair. He is in no distress. Lungs are clear. Heart has a regular rate and rhythm. Abdomen is soft. Patient has 1+ doughy edema of the lower extremities. Dryness of the skin on the anterior shins Assessment and Plan (1) Anemia Status: Acute Qualifiers: Anemia type: other cause Other causes of anemia: chronic disease, other Qualified Code(s): D63.8 - Anemia in other chronic diseases classified elsewhere Category: Medical Code(s): D64.9 - Anemia, unspecified (2) Diabetes mellitus with hypoglycemia Status: Acute Category: Medical Code(s): E11.649 - Type 2 diabetes mellitus with hypoglycemia without coma (3) Retroperitoneal lymphadenopathy Status: Acute Category: Medical Code(s): R59.0 - Localized enlarged lymph nodes (4) AAA (abdominal aortic aneurysm) Status: Chronic Qualifiers: Presence of rupture: without rupture Qualified Code(s): I71.4 - Abdominal aortic aneurysm, without rupture Category: Medical Code(s): I71.4 - Abdominal aortic aneurysm, without rupture (5) Renal cell carcinoma Status: Chronic Qualifiers: Laterality: right Qualified Code(s): C64.1 - Malignant neoplasm of right kidney, except renal pelvis Category: Medical Code(s): C64.9 - Malignant neoplasm of unspecified kidney, except renal pelvis (6) Chronic lymphocytic leukemia (CLL), B-cell Status: Chronic Qualifiers: Leukemia Active/Remission status: in remission Qualified Code(s): C91.11 - Chronic lymphocytic leukemia of B-cell type in remission Category: Medical Code(s): C91.10 - Chronic lymphocytic leukemia of B-cell type not having achieved remission (7) Diabetes mellitu
--- NOTE | 2020-11-17 08:35 | HMH.DCSUM ---
General - General Admission date:: 11/16/20 Discharge date: 11/17/20 HPI HPI: 80-year-old male was in his normal state of health yesterday when around midnight he developed numbness and weakness in both arms and legs. When his symptoms did not seem to be improving he came to the emergency department early in the morning on November 16. By the time of my interview patient reports improvement in symptoms. His reports this has happened before although not to the severity of his current episode. Patient has CLL, renal cell carcinoma, coronary artery disease. He denies fevers or chills. He admits to weakness. He denies cough. While patient was undergoing work-up in the emergency department he reports some chest pain. Patient is recently seen his primary care physician over worsening lower extremity edema and had diuretics increased. Work-up in the emergency department was significant for elevated white blood cell count consistent with recurrence of his CLL. CT scans revealed extensive lymphadenopathy along with a growing right renal mass. Up to the point of the previously mentioned findings patient's CLL was believed to be in remission. He follows with Dr. Flor in [place]. Regarding his renal cell carcinoma there has apparently been a desire to remove the tumor by his urologist Dr. Gao but surgery was declined due to the belief that he is unable to stop his dual antiplatelet therapy. 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 He is not considered a surgical candidate by his spinal surgeon due to increased risk of complications Hospital Course Hospital Course: Patient was admitted and transfused 2 units of packed red blood cells. Hemoglobin liam from 8-10.4 within 24 h. Patient felt better after transfusion. Patient's abnormal sensations in the extremities resolved. The following morning when patient was doing feeling better and had been able to ambulate with return of normal sensation of the extremities patient was discharged home. Patient was counseled about hypoglycemia as his blood sugar was in the 50s upon arrival to the hospital. He reports occasional hypoglycemia at home which would be secondary to his sulfonylurea and this has been discontinued at discharge. Patient will follow up with Dr. Fong in 48 h for a previously scheduled appointment Objective Vital signs: Temp Pulse Resp BP Pulse Ox 98.6 F 66 18 136/50 L 95 11/17/20 08:00 11/17/20 08:00 11/17/20 08:00 11/17/20 08:00 11/17/20 08:00 Results Labs on day of discharge: Labs from last 24 hours 11/17/20 11/17/20 11/17/20 06:21 06:21 05:05 WBC 13.4 H D RBC 3.04 L D Hgb 10.4 L Hct 32.0 L MCV 105.2 H MCH 34.1 H MCHC 32.4 RDW 19.3 H D Plt Count 80 L MPV 8.4 Neut % (Auto) 15.8 L Lymph % (Auto) 79.8 H [place] % (Auto) 1.6 L Eos % (Auto) 2.4 Baso % (Auto) 0.5 Neut # (Auto) 2.1 Lymph # (Auto) 10.7 H [place] # (Auto) 0.2 Eos # (Auto) 0.3 Baso # (Auto) 0.1 Total Counted 100 Neutrophils % (Manual) 24 L Band Neutrophils % 1.0 Lymphocytes % (Manual) 73 H Eosinophils % (Manual) 2 Platelet Estimate Marked decrease Poikilocytosis 1+ Anisocytosis 2+ Macrocytosis 2+ Sodium 138 Potassium 4.1 Chloride 107 Carbon Dioxide 23 Anion Gap 12.1 BUN 26 H D Creatinine 1.30 H Estimated Creat Clear 53 Estimated GFR 53 L Est GFR ( Amer) 64 Glucose 148 H POC Glucose 95 Calcium 8.9 Iron TIBC Iron Saturation Troponin I Vitamin B12 Folate Stool Occult Blood Blood Type Antibody Screen Crossmatch ([facility]) 11/16/20 11/16/20 11/16/20 21:36 19:34 17:13 WBC RBC Hgb 10.1 L D Hct 31.3 L MCV MCH MCHC RDW Plt Count MPV Neut % (Auto)
== END 2020-11-17 10:15 | disposition home or self-care (01) ==
LOC: ER 05:31 → 2ND 08:14
PROVIDERS: Admitting Provider Family Medicine; Emergency Provider Emergency Medicine; PCP Family Medicine; Visit Provider Family Medicine
DX: D64.9 Anemia, unspecified (principal); C91.11 Chronic lymphocytic leukemia of B-cell type in remission; E11.649 Type 2 diabetes mellitus with hypoglycemia without coma; C64.1 Malignant neoplasm of right kidney, except renal pelvis; I71.4 Abdominal aortic aneurysm, without rupture; I10 Essential (primary) hypertension; Z79.84 Long term (current) use of oral hypoglycemic drugs; Z95.5 Presence of coronary angioplasty implant and graft; R06.9 Unspecified abnormalities of breathing
CPT/HCPCS: 36430; 36415; 70450; 71045; 72128; 72131; 74177; 80048; 80076; 81001; 82272; 82607; 82746; 82962; 83540; 83550; 83605; 83880; 84484; 85007; 85014; 85018; 85025; 85651; 86140; 86850; 87040; 93005; 96365; 96375; 99284; G0328; G0378; J2405; P9016; Q9967; U0003

== ENCOUNTER 2020-12-08 08:14 | Inpatient (IN) | payer MEDICARE, SELFPAY ==
[2020-12-08] VITALS (20 sets, daily range): BP systolic 106–149; BP diastolic 40–71; PULSE 67–88; RESP 18–42; TEMP 36.7–38.2; O2SAT 88–92; BMI 26.5; BMI 27.3
--- NOTE | 2020-12-08 08:38 | XR_ITS ---
PROCEDURE: XR CHEST PORTABLE CLINICAL HISTORY: RESP DISTRESS COMPARISON: CR CXR2V XR chest 2V from 10/11/2017 CR XR CHEST PORTABLE from 05/04/2020 CR XR CHEST PORTABLE from 11/16/2020 FINDINGS: The cardiomediastinal silhouette and pulmonary vascularity are within normal limits. There is dense consolidation in the anterior segment of the right upper lobe suggestive of pneumonia. May also be infiltrate in the right lower lobe. Lung bases are under penetrated. Suspect small right effusion. No acute bony abnormalities. IMPRESSION: Right upper and right lower lobe pneumonia with small right effusion Dictated by: Venancio Mondragon MD 12/08/2020 09:20 Venancio Mondragon MD in [place] 12/08/2020 09:20
[2020-12-08 08:41] LABS: ABG Base Excess -9.3 mmol/L (-2.4-2.3); ABG HCO3 16.9 mmhg (22.0-26.0); ABG Oxygen Saturation 92 % (90-100); ABG PCO2 33.8 mmhg (35.0-45.0); ABG PH 7.32 mmol/L (7.35-7.45); ABG PO2 66.8 mmhg (80-100); ABG TCO2 17.9 mmhg (23-27)
[2020-12-08 08:42] LABS: Allen's Test Acceptable; Oxygen 2L NC %; Source Right Radial
--- NOTE | 2020-12-08 08:43 | HMH.EDGENADL ---
ED Disposition Clinical Impression: Pneumonia Qualifiers: Pneumonia type: due to unspecified organism Laterality: right Lung location: unspecified part of lung Qualified Code(s): J18.9 - Pneumonia, unspecified organism Respiratory failure with hypoxia Qualifiers: Chronicity: acute Qualified Code(s): J96.01 - Acute respiratory failure with hypoxia Disposition: Admitted As Inpatient Condition on Discharge: Serious - Critical Care Critical Care Time: Yes Attestation: On 12/08/20, the high probability of a clinically significant, sudden or life threatening deterioration of the following system(s) required my full and direct attention, intervention and personal management. The time I documented below is in addition to time spent performing reported procedures but includes the following listed in this critical care notation. Total Critical Care Time: 30 Vital system(s) involved:: Respiratory Failure My critical care processes included: Assessment & monitoring of V/S, Initial and Re-exams, Data Review/Interpretation, Coordinating Care, Medication Orders and management, Documentation Medical Decision Making - Medical Records Medical records reviewed: Yes: I reviewed the patient's medical records. MR Comment: Reviewed discharge summary from recent admission. Admitted for anemia due to exacerbation of CLL. - Abdoul Inquiry Pt receiving controlled substance: No Vital Signs: 12/08/20 08:29 12/08/20 09:00 12/08/20 09:15 Temperature 98.6 F Temperature Source Oral Pulse Rate 77 79 Pulse Rate [Right] 72 Respiratory Rate 18 40 H 40 H Blood Pressure 142/61 H 149/55 H Blood Pressure [Right Arm] 134/63 Blood Pressure Mean Blood Pressure Mean [Right Arm] 86 02 Sat by Pulse Oximetry 91 L 88 L 90 L Oxygen Delivery Method Nasal Cannula Nasal Cannula Nasal Cannula Oxygen Flow Rate (LPM) 2 4 4 12/08/20 09:30 12/08/20 09:40 12/08/20 10:00 Temperature Temperature Source Pulse Rate 80 83 Pulse Rate [Right] Respiratory Rate 26 H 28 H Blood Pressure 135/57 L 133/61 Blood Pressure [Right Arm] Blood Pressure Mean Blood Pressure Mean [Right Arm] 02 Sat by Pulse Oximetry 88 L 92 L 90 L Oxygen Delivery Method Venturi Mask Venturi Mask Venturi Mask Oxygen Flow Rate (LPM) 15 12/08/20 10:30 12/08/20 11:00 12/08/20 11:30 Temperature Temperature Source Pulse Rate 88 86 77 Pulse Rate [Right] Respiratory Rate 28 H 24 Blood Pressure 123/46 L 118/45 L 118/47 L Blood Pressure [Right Arm] Blood Pressure Mean 81 73 70 Blood Pressure Mean [Right Arm] 02 Sat by Pulse Oximetry 90 L 91 L 89 L Oxygen Delivery Method Oxygen Flow Rate (LPM) 12/08/20 12:30 12/08/20 12:45 Temperature Temperature Source Pulse Rate 79 85 Pulse Rate [Right] Respiratory Rate 26 H 26 H Blood Pressure 106/53 L 109/46 L Blood Pressure [Right Arm] Blood Pressure Mean Blood Pressure Mean [Right Arm] 02 Sat by Pulse Oximetry 91 L 90 L Oxygen Delivery Method Venturi Mask Venturi Mask Oxygen Flow Rate (LPM) - Lab Data Lab Results 12/08/20 08:39: Specimen Source Right radial, O2 % 2l nc, ABG pH 7.32 L, ABG pCO2 33.8 L, ABG pO2 66.8 L, ABG HCO3 16.9 L, ABG Total CO2 17.9 L, ABG O2 Saturation 92, ABG Base Excess -9.3 L, Venancio Test Acceptable 12/08/20 08:42: Chlamy pneumoniae PCR Not detected, Adenovirus (PCR) Not detected, B. pertussis DNA (PCR) Not detected, Coronavirus OC43 (PCR) Not detected, Coronavirus HKU1 (PCR) Not detected, Coronavirus 229E (PCR) Not detected, SARS-CoV-2 (PCR) Not detected, Coronavirus NL63 (PCR) Not detected, Human Metapneumovir PCR Not detected, Influenza A (H1) PCR Not detected, Influ A (H1N1/09) PCR Not detected, Influenza A (H3) PCR Not detected, Influenza Type A (PCR) Not detected, Influenza Type B (PCR) Not detected, M. pneumoniae (PCR) Not detected, Parainfluenza 1 (PCR) Not detected, Parainfluenza 2 (PCR) Not detected, Parainfluenza 3 (PCR) Not detected, Parainflu
[2020-12-08 08:49] LABS: Adenovirus,PCR Not Detected (NotDetected); Bordetella Pertussis Not Detected (NotDetected); Chlamydophila Pneumoniae, PCR Not Detected (NotDetected); Coronavirus 19, PCR Not Detected (NotDetected); Coronavirus 229E Not Detected (NotDetected); Coronavirus NL63 Not Detected (NotDetected); Coronavirus OC43 Not Detected (NotDetected); Coronovirus HKU1,PCR Not Detected (NotDetected); Human Metapneumovirus Not Detected (NotDetected); Influenza A, PCR Not Detected (NotDetected); Influenza AH1, 2009 Not Detected (NotDetected); Influenza AH1, PCR Not Detected (NotDetected); Influenza AH3,PCR Not Detected (NotDetected); Influenza B, PCR Not Detected (NotDetected); Mycoplasma Pneumoniae, PCR Not Detected (NotDetected); Parainfluenza 1, PCR Not Detected (NotDetected); Parainfluenza 2, PCR Not Detected (NotDetected); Parainfluenza 3, PCR Not Detected (NotDetected); Parainfluenza 4, PCR Not Detected (NotDetected); Respiratory Syncytial Virus Not Detected (NotDetected); Rhinovirus/Enterovirus Not Detected (NotDetected)
--- NOTE | 2020-12-08 09:27 | PC.NURSE ---
MD at bedside. RT to come down and place pt on Venti mask
--- NOTE | 2020-12-08 09:34 | ECG_ITS ---
APPROVED REPORT Exam: Resting ECG HR:83 bpm ECG Measurements Heart Rate 83 AXES IL 230 P 51 QRSd 100 QRS 71 QT 350 T 130 QTc 411 Conclusion Sinus rhythm with 1st degree AV block Incomplete right bundle branch block Nonspecific ST and T wave abnormality Abnormal ECG Electronically signed by : Kuldip Hays, 12/08/2020 21:08:03
--- NOTE | 2020-12-08 09:39 | PC.NURSE ---
RT at bedside
[2020-12-08 09:40] LABS: Basophils # 0.1 K/mm3 (0-0.2); Basophils % 0.7 % (0.1-2.0); Eosinophils # 0.1 K/mm3 (0.0-0.4); Eosinophils % 0.5 % (0.1-12.0); Hematocrit 27.9 % (42.0-52.0); Hemoglobin 8.6 g/dL (14.1-18.0); Lymphocytes # 11.8 K/mm3 (0.7-4.5); Lymphocytes % 91.3 % (10-50); Mean Corpuscular HGB Conc 30.9 g/dL (31.8-35.4); Mean Corpuscular Hemoglobin 33.7 pg (27.0-31.2); Mean Corpuscular Volume 109.1 fl (80-94); Mean Platelet Volume 8.4 fl (7.4-10.4); Monocytes # 0.1 K/mm3 (0.1-1.0); Monocytes % 0.4 % (1.7-9.3); Neutrophils # 0.9 K/mm3 (1.8-7.8); Platelet Count 80 K/mm3 (142-424); Red Blood Count 2.55 M/mm3 (4.60-6.20); Red Cell Distribution Width 17.4 % (11.5-17.5); White Blood Count 12.9 K/mm3 (4.8-10.8)
[2020-12-08 09:43] LABS: MANUAL DIFFERENTIAL MANUAL DIFFERENTIAL (MANUAL DIFF)
[2020-12-08 09:45] LABS: Chloride 115 mmol/L (98-107)
[2020-12-08 09:46] LABS: Potassium 5.5 mmoL/L (3.5-5.1); Sodium 139 mmol/L (136-145)
[2020-12-08 09:48] LABS: Alanine Aminotransferase 10 U/L (12-78); Albumin Level 3.8 g/dl (3.5-5.0); Albumin/Globulin Ratio 1.8 (1.1-1.8); Alkaline Phosphatase 55 U/L (38-126); Anion Gap 12.5 mEq/L (5-15); Aspartate Amino Transferase 22 U/L (17-59); Bilirubin,Total 0.9 mg/dl (0.2-1.3); Blood Urea Nitrogen 21 mg/dl (9-20); Carbon Dioxide 17 mmol/L (22.0-30.0); Creatinine Clearance Estimated 71 mL/min (50-200); Estimated Glomerular Filt Rate 72 ml/min (>60); GFR (African American) 87 ML/MIN (>60); Globulin 2.1 g/dL (1.3-3.2); Lactic Acid 1.1 mmol/L (0.7-2.1); Total Protein,Serum 5.9 g/dl (6.3-8.2)
[2020-12-08 09:49] LABS: Calcium 8.5 mg/dl (8.4-10.2); Glucose 135 mg/dl (74-100)
[2020-12-08 09:51] LABS: Anisocytosis 2+; Lymphocytes % 85 % (10-50); Macrocytosis 2+; Monocytes % 2 % (2-9); Neutrophils % 4 % (42-76); Platelet Estimate Moderate Decrease; Total Cells Counted 100
[2020-12-08 10:01] LABS: Troponin I < 0.01 ng/ml (0.00-0.034)
[2020-12-08 10:06] LABS: Procalcitonin 0.981 ng/mL (0.0-2.0)
[2020-12-08 10:10] LABS: NT Pro Brain Natriuretic Pep. 3000 pg/mL (0-450)
--- NOTE | 2020-12-08 13:09 | PC.NURSE ---
GAVE REPORT TO ALEAH POND AT THIS TIME
--- NOTE | 2020-12-08 13:31 | PC.NURSE ---
Pt arrived to the floor at this time.
--- NOTE | 2020-12-08 14:46 | HMH.PHAVTE ---
[facility] Pharm[facility] VTE Monitoring - Patient Demographics Admission date: 12/08/20 Report Date: 12/08/20 Time: 14:46 Allergies/Adverse Reactions: Patient Allergies ciprofloxacin [From CIPRO] Allergy (Mild, Verified 06/13/19 11:03) codeine [CODEINE] Allergy (Mild, Verified 06/13/19 11:03) Height: 1.78 m Weight: 86.296 kg Patient Problems: Current Active Problems Pneumonia (Acute) Respiratory failure with hypoxia (Acute) - VTE Risk Labs: VTE Related Lab Results Hgb 8.6 g/dL (14.1-18.0) L 12/08/20 09:10 Hct 27.9 % (42.0-52.0) L 12/08/20 09:10 Plt Count 80 K/mm3 (142-424) L 12/08/20 09:10 BUN 21 mg/dl (9-20) H 12/08/20 09:10 Creatinine 1.00 mg/dl (0.66-1.25) 12/08/20 09:10 Estimated Creat Clear 71 mL/min (50-200) 12/08/20 09:10 VTE Score: 6 VTE Risk Level: Moderate Risk - Prophylaxis VTE Prophylaxis Ordered?: Yes Types of VTE Prophylaxis: TEDS Knee High Location of Applied Device: Bilateral Lower Extremeties
[2020-12-08 16:19] LABS: Microscopic, Urine URINE MICROSCOPIC (MICROSCOPIC)
[2020-12-08 16:52] LABS: Appearance,Urine CLEAR (Clear); Bilirubin,Urine Negative (Negative); Blood, Urine 1+ (Negative); Color,Urine YELLOW (Yellow); Glucose,Urine (UA) Negative (Negative); Ketones,Urine Negative (Negative); Leukocyte Esterase,Urine Negative (Negative); Nitrate,Urine Negative (Negative); Protein,Urine Negative (Negative); Specific Gravity, Urine 1.025 (1.005-1.030); Urobilinogen,Urine 0.2 EU/dl (0.2)
[2020-12-08 16:54] LABS: POC Glucose,Bedside 102 (70-110)
[2020-12-08 17:02] LABS: RBC,Urine 20-50 #/hpf (0-3); Squamous Epithelial Cell,Urine Occasional #/hpf (0-5)
--- NOTE | 2020-12-08 20:00 | XR_ITS ---
PROCEDURE: XR CHEST PORTABLE CLINICAL HISTORY: intubatiton Code blue, evaluate tube placement COMPARISON: CR XR CHEST PORTABLE from 05/04/2020 CR XR CHEST PORTABLE from 11/16/2020 CR XR CHEST PORTABLE from 12/08/2020 FINDINGS: 1949 hours Endotracheal tube has been inserted. The tip is 2 cm above the desire and could be withdrawn approximately 4 cm. There is overlying defibrillator pads and electronic cardiac monitoring device. Dense consolidation is present involving the right upper lobe consistent with pneumonia. Atelectasis or infiltrate is present in the left lung base. Right lower lobe infiltrate also suspected but obscured by the overlying defibrillator pad. No acute bony abnormalities. IMPRESSION: 1. Slightly low position of endotracheal tube 2 cm above the desire and could be withdrawn approximately 4 cm. 2. Right upper and left lower lobe consolidation Dictated by: Venancio Mondragon MD 12/09/2020 05:26 Venancio Mondragon MD in [place] 12/09/2020 05:26
--- NOTE | 2020-12-08 20:00 | ECG_ITS ---
APPROVED REPORT Exam: Resting ECG HR:48 bpm ECG Measurements Heart Rate 48 AXES QRSd 136 QRS 94 QT 404 T 67 QTc 360 Conclusion Sinus rhythm with complete heart block and Wide QRS rhythm Rightward axis Nonspecific intraventricular block T wave abnormality, consider anterior ischemia Abnormal ECG Electronically signed by : Kuldip Hays, 12/10/2020 15:12:47
[2020-12-08 20:15] LABS: ABG Base Excess -21.8 mmol/L (-2.4-2.3); ABG HCO3 12.6 mmhg (22.0-26.0); ABG Oxygen Saturation 77 % (90-100); ABG PO2 63.1 mmhg (80-100); ABG TCO2 15.1 mmhg (23-27)
[2020-12-08 20:29] LABS: Eosinophils # 0.1 K/mm3 (0.0-0.4); Eosinophils % 0.2 % (0.1-12.0); Monocytes # 0.2 K/mm3 (0.1-1.0); Monocytes % 0.4 % (1.7-9.3); Neutrophils # 0.7 K/mm3 (1.8-7.8)
[2020-12-08 20:30] LABS: Chloride 119 mmol/L (98-107); Sodium 140 mmol/L (136-145)
[2020-12-08 20:33] LABS: Anion Gap 15.5 mEq/L (5-15); Blood Urea Nitrogen 25 mg/dl (9-20); Carbon Dioxide 12 mmol/L (22.0-30.0); Creatinine Clearance Estimated 46 mL/min (50-200); Estimated Glomerular Filt Rate 42 ml/min (>60); GFR (African American) 51 ML/MIN (>60); Glucose 125 mg/dl (74-100)
[2020-12-08 20:34] LABS: Basophils # 1.1 K/mm3 (0-0.2); Basophils % 1.9 % (0.1-2.0); Lymphocytes % 96.3 % (10-50); Mean Corpuscular HGB Conc 28.4 g/dL (31.8-35.4); Mean Corpuscular Hemoglobin 33.2 pg (27.0-31.2); Mean Corpuscular Volume 116.8 fl (80-94); Mean Platelet Volume 8.4 fl (7.4-10.4); Platelet Count 117 K/mm3 (142-424); Red Blood Count 2.04 M/mm3 (4.60-6.20); Red Cell Distribution Width 17.5 % (11.5-17.5)
[2020-12-08 20:38] LABS: Calcium 7.1 mg/dl (8.4-10.2); Potassium 6.5 mmoL/L (3.5-5.1)
[2020-12-08 20:40] LABS: Hematocrit 23.9 % (42.0-52.0); Neutrophils % 1.2 % (37.0-80.0); White Blood Count 59.2 K/mm3 (4.8-10.8)
[2020-12-08 20:41] LABS: Hemoglobin 6.8 g/dL (14.1-18.0)
[2020-12-08 20:43] LABS: MANUAL DIFFERENTIAL MANUAL DIFFERENTIAL (MANUAL DIFF)
[2020-12-08 20:45] LABS: Troponin I 0.06 ng/ml (0.00-0.034)
[2020-12-08 20:49] LABS: Hypochromasia 3+; Lymphocytes % 95 % (10-50); Macrocytosis 3+; Monocytes % 5 % (2-9); Platelet Estimate Slight Decrease; Total Cells Counted 100
[2020-12-08 20:50] LABS: Anisocytosis 1+
--- NOTE | 2020-12-08 21:05 | PC.NURSE ---
1941- Pt seen not breathing, pt non-responsive. Code Blue called, ACLS initiated 1944- Asystole on monitor 1945- 1 mg of epi administered 1948- Agonal/ PEA on monitor 7.5 ET tube inserted MD Messina 1949- Sinus nataly on monitor HR 52 1950- PIV(20 in Rt EJ) IO in LLE 1951- Manual Pressures: LUE 68/42 RUE 72/40 1952- 1mg Atropine in 1955- Levophed began 15 mcq/min 1956- CXR obtained, pull ET tube back 3 cm per MD Messina 1958- Manual Pressures: LUE 64/20 RUE 70/38 2000- Atropine in 2001- Dopamine began @ 20 mcq/min Automatic LUE 54/27 HR 36 2004- Automatic BP LUE 46/25 2005- Asystole on monitor, ACLS initiated 2008- Femoral pulse detected by MD Messina 2010- Automatic BP LUE 132/54 Levo gtt decreased 10 mcq/min 2011- ABG obtained per MD Zuniga 2013-Automatic BP LUE 75/34 Levo increased 25 mcq/min Dopamine continues @ 20 mcq/min 2015- CBC, CMP, troponin, blood gas ordered by MD Zuniga 25 mcq of Levo, Dopamine increased to 40 mcq/min Automatic BP LUE 70/31 2018- Levo @ 30 mcq/min; 40 mcq/min 2019- x2 amp of Bicarb administered MD Messina along w/ MMario Owens, RN speaking to family @ this time 2023- Family in to see pt 2034- Pt transferred to room 218
--- NOTE | 2020-12-08 21:06 | PC.NURSE ---
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 2110 pt ruled out for autopsy by Kt Duque
--- NOTE | 2020-12-08 21:16 | P.PN_ITS ---
Critical Care Event Note Code activated: Yes Narrative: This case had a high probability of a clinically significant, sudden, or life threatening deterioration of this patient's condition which required my full and direct attention, intervention and personal management. Patient. He is reported to have had increasing oxygen requirement, increasing hypoxia throughout the day after admission. He became bradycardic and went into cardiac arrest. CPR has been started prior to my arrival. Bag valve mask ventilations are being performed upon my arrival. IV has infiltrated when his first dose of epinephrine was being administered. sleeve maker upon my arrival shows asystole. The patient was resuscitated: Intubation was performed with glide scope. Right external jugular IV was established by me for administration of medications. Left tibia intraosseous line was established by vehicle service attendant congestion. The patient was given doses of epinephrine until return of spontaneous circulation was obtained. His initial rhythm after return of spontaneous circulation was narrow complex bradycardia in the 40s. Initially blood pressure was good, but he became hypotensive and was treated with atropine, Levophed and dopamine infusions. He continued to become more hypotensive despite infusions of pressor agents. Maximum infusion rates were reached on dopamine and Levophed. Arterial blood gases showed a pH of 6.8 and he was given 2 A of bicarbonate. Laboratories were sent because not yet resulted at this point. At this point I discussed the case with the family and advised them of the very poor prognosis. They have decided that they would want 1 more round of CPR if it became necessary. The patient was moved to the critical care area on the floor. Dr. Zuniga, attending for the patient at this time, was present during the code and afterwards. Procedure #1 Right external jugular IV established by pr. 18-gauge. Good flow. Procedure #2 rapid sequence intubation Endotracheal Intubation Indications: cardiac arrest Intubation method: direct Laryngoscope size: glidescope Tube size: 7.5 mm Tube type: cuffed Number of attempts: 1 Cords visualized: yes Post-procedure assessment: chest rise and CO2 detector Breath sounds: equal and absent over the epigastrium Cuff inflated: yes ETT to teeth: 24 cm Tube secured with: ETT velasco Chest x-ray was obtained and showed the tip of the endotracheal tube low in the trachea, it was withdrawn 3 cm. EKG was performed and shows narrow complex bradycardia without P waves, likely junctional rhythm, without injury pattern. I returned to the emergency department and shortly thereafter [facility] was again called and I returned to the patient's room again. He was in asystole with a very rare agonal beat. [id number] ventilations are being performed through his endotracheal tube. Laboratories obtained at the time of the first cardiac arrest showed a potassium of 6.5. He was given intravenous calcium and bicarbonate for the possibility of worsening hyperkalemia. He was given additional epinephrine. Despite all of these efforts he remained in asystole with a very rare agonal beat. I felt further efforts at resuscitation would be futile. Patient was pronounced at 8:56 PM. Family was notified. Dr. Zuniga was notified. Critical care time: 30 - 74 mins [facility] Critical Care Exam Vital signs: Temp Pulse Resp BP Pulse Ox 98.1 F 67 24 107/45 L 88 L 12/08/20 16:00 12/08/20 16:00 12/08/20 16:00 12/08/20 16:00 12/08/20 16:00
--- NOTE | 2020-12-08 21:16 | PC.NURSE ---
Called and spoke with Pina Jimenez with [facility]. pt is released and ruled out for donation at this time.
[2020-12-08 21:23] LABS: ABG PCO2 81.3 mmhg (35.0-45.0); ABG PH 6.81 mmol/L (7.35-7.45); Oxygen 100 %
[2020-12-08 21:39] LABS: POC Glucose,Bedside 100 (70-110)
--- NOTE | 2020-12-09 00:19 | PC.NURSE ---
Note: Delayed entry 2039- Pulse unable to be felt or heard; start ACLS and CPR 1mg Epi administered 2049- 1mg Epi administered
--- NOTE | 2020-12-09 00:38 | PC.NURSE ---
2039 - Code Blue, chest compressions started. 2049 - Epi 1 mg administered, MD Messina at bedside. Pulse checked. No pulse. BP 75/22 2051 - MD notified of critical labs 2052 - 1 gram Calcium Chloride administered. 1 amp of Bicarb administered. Pulse Checked. Continue CPR. 2053 - Epi 1 mg administered 2055 - Pulse check. No pulse 2055 - Time of 2099 - Family at bedside 2144 - Post mortem care administered. ETT 7.5, IV's, IO LLE and F/C DC. 2203 - [facility] speaking with family 0000 - Pt left floor via [facility].
[2020-12-10 20:54] LABS: Peripheral Smear Review Scanned Result
--- NOTE | 2020-12-18 07:32 | HMH.HPDC ---
General - General Admission date:: 12/08/20 Discharge date: 12/08/20 *Admission Date: 12/08/20 *Chief complaint: Shortness of breath *History of present illness: 80-year-old male presented to the emergency department with shortness of breath. Patient was diagnosed with pneumonia. Please see ER note [facility] History I have reviewed the patient's past medical history: Yes Medical History: Reports:: Aneurysm (Aortic), Anxiety, Cancer, Coronary Artery Disease, Diabetes Mellitus Type 2, Hypertension Denies:: Diabetes Mellitus Type 1, Internal Pacemaker, MRSA, Seizures *Have you ever received a pneumonia vaccine?: No *Have you received a flu vaccine this season?: No Other Medical History: Reports: Anemia, Arthritis, Cataracts Other Surgeries: Yes: Cardiac Surgery, Coronary Stent, Other. No: Pacemaker Amputation: No Fractures: No - *Social History Last grade of school completed: 7th or 8th Smoking Status: Former smoker # Packs/Day (cigarettes): 1 #Yrs smoked (if former smoker): 20 Alcohol Intake: never Alcohol Intake Frequency:: other Substance Use Type: denies use *Occupational Status:: retired Housing: house Household Members: spouse *Travel in the last 8 weeks: None - Psychiatric History Pschychiatric History:: Reports:: Anxiety Family Hx:: Cancer, Stroke Review of Systems - Review of Systems Review of systems:: unable to obtain Exam Vital signs and Labs for Last 24 Hours: Temp Pulse Resp BP Pulse Ox 98.1 F 68 20 107/45 L 88 L 12/08/20 16:00 12/08/20 19:10 12/08/20 21:05 12/08/20 16:00 12/08/20 16:00 - *Routine HEENT Exam Head: Present: other Eye: Present: other ENT: Present: other - *Routine Neck Exam Comments: See ER and code documentation - *Routine Respiratory Exam Present: other - *Routine Cardiovascular Exam Present: other - *Routine Abdominal Exam Present: other - *Routine Extremities Exam Comments: See ER and code documentation - *Routine Skin Exam Present: dry - *Routine Neurological Exam See ER and code documentation Hospital Course Hospital Course: Patient was admitted and on the same day of admission patient's condition deteriorated. A code was called. Please see code documentation for full details. Patient . DS: Diagnosis - Discharge Diagnosis (1) Pneumonia Status: Acute (2) Respiratory failure with hypoxia Status: Acute Discharge Plan - Patient Discharge Instructions Patient Instructions: Pneumonia-Adult, Respiratory Failure - Follow up Plan Disposition: Home Medications: Home Medications Medication Instructions Recorded Confirmed Type atorvastatin 20 mg tablet 20 mg PO DAILY 09/13/17 12/08/20 History metformin 500 mg tablet 1,000 mg PO BIDWM tab 09/13/17 12/08/20 History omeprazole 20 mg capsule,delayed 20 mg PO DAILY 09/13/17 12/08/20 History release acetaminophen 500 mg tablet 500 mg PO Q6HP PRN 09/14/17 12/08/20 History Amlodipine Besylate [Amlodipine 10 mg PO DAILY 01/14/18 12/08/20 History 10mg Tab] LORazepam [Ativan 1mg tablet] 1 mg PO TIDP PRN 01/14/18 12/08/20 History Chlorthalidone 25 mg PO DAILY 05/04/20 12/08/20 History Aspirin [Aspirin 81mg chewable 81 mg PO DAILY 05/05/20 12/08/20 History tab] Celecoxib [Celebrex 200mg cap] 200 mg PO BIDWM 05/05/20 12/08/20 History Multivit-Mins/Iron/Folic/Lycop 1 each PO DAILY 05/05/20 12/08/20 History [Centrum Men's Tablet] Nitroglycerin [Nitrostat 0.4mg SL 0.4 mg SL Q5MINP PRN 05/05/20 12/08/20 History Tablet] carvediloL [Carvedilol 25mg Tab] 25 mg PO BID 05/05/20 12/08/20 History lisinopriL [Zestril 20mg tab] 20 mg PO DAILY 11/16/20 12/08/20 History Prescriptions/Medication Reconciliation: No Action atorvastatin 20 mg tablet 20 mg PO DAILY metformin 500 mg tablet 1,000 mg PO BIDWM tab omeprazole 20 mg capsule,delayed release 20 mg PO DAILY acetaminophen 500 mg tablet 500 mg PO Q6HP PRN
== END 2020-12-09 | disposition expired | DRG 208 ==
LOC: ER 09:29 → 2ND 11:53
PROVIDERS: Admitting Provider Emergency Medicine; Emergency Provider Emergency Medicine; PCP Family Medicine; Visit Provider Family Medicine
DX: J18.9 Pneumonia, unspecified organism (principal); J96.01 Acute respiratory failure with hypoxia; C91.10 Chronic lymphocytic leukemia of B-cell type not having achieved remission; C85.90 Non-Hodgkin lymphoma, unspecified, unspecified site; C64.9 Malignant neoplasm of unspecified kidney, except renal pelvis; I46.9 Cardiac arrest, cause unspecified; Z87.891 Personal history of nicotine dependence; I25.10 Atherosclerotic heart disease of native coronary artery without angina pectoris; E11.9 Type 2 diabetes mellitus without complications; R00.1 Bradycardia, unspecified; Z95.5 Presence of coronary angioplasty implant and graft; M19.90 Unspecified osteoarthritis, unspecified site
CPT/HCPCS: 31500; 94002; 71045; 80048; 80053; 81001; 82803; 82962; 83605; 83880; 84145; 84484; 85007; 85025; 87040; 87581; 87633; 87798; 93005; 94640; 99203; G0463; J0456